=== PATIENT | male | born 1955 ===

== ENCOUNTER 2024-10-10 07:24 | Inpatient (IN) | payer OTHER, SELFPAY ==
[2024-10-10] VITALS (19 sets, daily range): BP systolic 126–166; BP diastolic 71–91; PULSE 72–124; RESP 13–19; TEMP 36.1–37.2; O2SAT 92–100; BMI 26.0; BMI 27.4
--- NOTE | ~2024-10-10 | CT_ITS ---
EXAMINATION: CT HEAD WITHOUT CONTRAST CLINICAL INFORMATION: mental status changes COMPARISON: None available. TECHNIQUE: Contiguous axial imaging was performed from the skull base to vertex without intravenous administration of contrast. This CT examination was performed using dose optimization techniques as appropriate, variously including the following: *Automated exposure control *Adjustment of mA and/or kV according to patient size (this includes techniques or standardized protocols for targeted exams where dose is matched to indication/reason for exam; i.e. extremities or head) *Use of iterative reconstruction technique DLP: 1681 mGy-cm FINDINGS: No acute intracranial hemorrhage, mass effect, midline shift, hydrocephalus or herniation. Grade 1 matter differentiation is normal. Multifocal old lacunar infarcts, basal ganglia and davidson radiata white matter. Mild multilevel patchy deep periventricular white matter hypodensities involving centrum semiovale and davidson radiata. Posterior cranial fossa contents demonstrated no acute intracranial hemorrhage or mass effect. Calcified plaques in the V4 segments and the cavernous supraclinoid segments both ICA. Small cavum septa pellucida, congenital variant. The bony calvarium is intact. No air-fluid levels in the included paranasal sinuses. Tympanic cavities and mastoid air cells are aerated. No gross hematoma or masses in the intraconal or the extraconal compartments of the orbits. CT/CT head/brain wo IV con IMPRESSION: No acute intracranial hemorrhage. Small vessel occlusive disease. Superimposed acute stroke/nonhemorrhagic ischemia cannot be excluded. Electronically signed by: Alex Williamson MD 10/10/2024 10:36 AM [facility]
--- NOTE | ~2024-10-10 | MR_ITS ---
CLINICAL HISTORY: mental status changes MR Brain without gadolinium Comparison: CT/MT/SR - CT HEAD/BRAIN WO IV CON - 10/10/24 09:54 EST Findings: 3 mm focus of restricted diffusion within the high right frontal lobe. No intracranial mass or hemorrhage. No midline shift. No hydrocephalus. Vascular flow voids are intact. There is mild white matter disease. The orbits are normal. The sinuses and mastoid air cells are clear. No focal bone lesion. IMPRESSION: 3 mm focus of acute infarction within the right frontal lobe. This document has been electronically signed by: Silvia Jackson MD on 10/14/2024 18:33:26
--- NOTE | ~2024-10-10 | CT_ITS ---
EXAMINATION: CT ABDOMEN PELVIS WITH IV CONTRAST HISTORY: upper abdominal pain IV contrast only COMPARISON: There are no prior studies for comparison. TECHNIQUE: CT scan of the abdomen and pelvis was performed following administration of 85 mL Omnipaque 350 using standard departmental protocol. Coronal and sagittal reformatted images were generated and reviewed. Oral contrast material was not administered at the request of the referring physician. This CT exam was performed with one or more of the following dose reduction techniques: automated exposure control, adjustment of the mA and/or kV according to patient size, use of iterative reconstruction technique. DLP: 946.96 mGy-cm FINDINGS: LOWER CHEST: The visualized lung bases are clear. There is no pleural effusion. CARDIOVASCULATURE: The heart is normal in size. There is no pericardial effusion. LIVER: The liver is normal in size and contour. No liver mass is identified. The hepatic and portal veins are patent. GALLBLADDER / BILE DUCTS: The gallbladder is distended and there is moderate pericholecystic inflammatory stranding, highly suggestive of acute cholecystitis. No calcified stones are identified.. There is no intra or extrahepatic biliary ductal dilatation. SPLEEN: The spleen is normal in size. No focal splenic lesion is identified. PANCREAS: The pancreas is unremarkable in appearance. ADRENAL GLANDS: Within normal limits. KIDNEYS/RETROPERITONEUM: There is a nonobstructing 3 mm calculus in an interpolar calyx of the right kidney. There is no hydronephrosis. There is a 1.6 cm cyst in the interpolar region of the right kidney. Smaller hypodense foci in both kidneys likely represent cysts but are too small to accurately characterize. LYMPH NODES: No abdominal or pelvic lymphadenopathy. VASCULATURE: The abdominal aorta demonstrates atherosclerotic calcification, but is normal in caliber. MESENTERY/PERITONEUM: No free fluid. No masses. There is no free intraperitoneal gas. STOMACH: There is a small hiatal hernia. The stomach is otherwise collapsed. SMALL BOWEL: The small bowel is normal in caliber. COLON: There is a moderate amount of stool throughout the colon. APPENDIX: Normal. URINARY BLADDER/PELVIC ORGANS: The urinary bladder is unremarkable. The patient is likely status post TURP. BONES / SOFT TISSUES: There is degenerative disc disease of the spine. CT/CT abdomen pelvis w IV con IMPRESSION: While no calcified gallstones are identified, findings are highly suggestive of acute cholecystitis. Ultrasound or HIDA scan may be helpful. Electronically signed by: Luis A Vera MD 10/10/2024 10:48 AM NELIDA
--- NOTE | ~2024-10-10 | XR_ITS ---
EXAMINATION: XR CHEST CLINICAL INFORMATION: chest pain COMPARISON: None available. TECHNIQUE: 2 views of the chest were obtained. FINDINGS: Pulmonary reticular pattern. Haziness in the right middle lobe. No pleural effusion or pneumothorax. Cardiomediastinal silhouette demonstrates calcified plaque thoracic aorta. Multilevel thoracic and upper lumbar spondylosis. Radiopaque foreign body in the left humeral head not fully depicted. XR/XR chest 2V IMPRESSION: Chronic interstitial lung disease with questionable airspace disease in the right middle lobe. Electronically signed by: Alex Williamson MD 10/10/2024 09:56 AM EST
--- NOTE | 2024-10-10 07:27 | ECG_ITS ---
Test Reason : chest pain Blood Pressure : */* mmHG Vent. Rate : 83 BPM Atrial Rate : 83 BPM P-R Int : 144 ms QRS Dur : 80 ms QT Int : 348 ms P-R-T Axes : 14 7 41 degrees QTcB Int : 408 ms Normal sinus rhythm Cannot rule out Inferior infarct , age undetermined Cannot rule out Anterior infarct , age undetermined Abnormal ECG No previous ECGs available Referred By: Generic ED Physician Electronically Signed By: MARCOS KINGSTON
[2024-10-10 08:04] LABS: Basophils Absolute Auto 0.1 X10*3/uL (0.0-0.2); Basophils Percent Auto 0.3 % (0-2); Hematocrit 41.9 % (42.0-52.0); Hemoglobin 14.3 g/dl (14.0-18.0); Imm Gran Abs Auto 0.24 X10*3/uL (0.00-0.03); Lymphocytes Percent Auto 8.3 % (20-40); MANUAL DIFF FLAG SCAN; Mean Corpuscular HGB Conc 34.1 g/dl (31.0-36.0); Mean Corpuscular Hemoglobin 32.7 pg (27.0-33.0); Mean Corpuscular Volume 95.9 fL (80.0-98.0); Mean Platelet Volume 11.1 fL (9.4-12.4); Monocytes Absolute Auto 2.9 X10*3/uL (0.1-1.2); Monocytes Percent Auto 11.7 % (2-11); Neutrophils Absolute Auto 19.3 x10*3/uL (2.0-8.3); Neutrophils Percent Auto 78.7 % (45-73); Platelet Count 216 X10*3/uL (160-400); Red Blood Count 4.37 X10*6/uL (4.60-5.80); Red Cell Distribution Width 12.6 % (11.0-16.0); SCAN SMEAR FLAG 1; White Blood Count 24.6 X10*3/uL (4.8-10.8)
[2024-10-10 08:18] LABS: Alanine Aminotransferase 19 U/L (0-40); Albumin Level 3.9 g/dL (3.5-5.0); Alkaline Phosphatase 83 U/L (39-117); Anion Gap 11 (12-20); Aspartate Amino Transferase 24 U/L (5-37); Bilirubin Direct 0.7 mg/dL (0.0-0.5); Bilirubin Total 1.4 mg/dL (0.0-1.0); Blood Urea Nitrogen 32 mg/dL (9-16); Calcium 10.8 mg/dL (8.4-10.2); Carbon Dioxide 26 mmol/L (22-29); Chloride 104 mmol/L (96-108); Creatinine Clr Calc Pharmacy 58.3; Estimated Glomerular Filt Rate 53; Glucose Random 94 mg/dL (60-115); Lipase 9 U/L (8-78); Potassium 4.3 mmol/L (3.3-5.1); Sodium 137 mmol/L (135-145); Total Protein 7.5 g/dL (6.5-8.0)
[2024-10-10 08:23] LABS: SLIDE REVIEW VERIFIED
--- NOTE | 2024-10-10 08:50 | ED_ITS ---
HPI - Abdominal Pain General Chief Complaint: Abdominal Pain Stated Complaint: chest pain Time Seen by Provider: 10/10/24 08:23 Source: patient Mode of arrival: ambulatory Limitations: no limitations History of Present Illness HPI narrative: This is 69 years old male presented to the emergency department with a chief complaint of nausea vomiting since Monday, also complaining of upper abdominal pain epigastric pain. He is from [place] he is working locally. Denies any fever chills MD elicited complaint: abdominal pain Pertinent past history: none Onset (ago): day(s) (2) Pain Consistency: constant Location: epigastric, LUQ and RUQ Severity: moderate Quality: cramping Radiation: none Migration to: no migration Exacerbating factors: nothing Related Data Home Medications ?Medication ?Instructions ?Recorded ?Confirmed cetirizine 10 mg tablet 10 mg PO DAILY 10/10/24 famotidine 20 mg tablet 20 mg PO DAILY 10/10/24 famotidine 20 mg tablet 20 mg PO DAILY 10/10/24 imipramine HCl 25 mg tablet 25 mg PO DAILY 10/10/24 lisinopril 20 mg tablet 20 mg PO DAILY blood pressure 10/10/24 omeprazole 40 mg capsule,delayed 40 mg PO DAILY 10/10/24 release Allergies Allergy/AdvReac Type Severity Reaction Status Date / Time No Known Allergies Allergy Verified 10/10/24 07:49 Review of Systems Constitutional: Reports fatigue and Denies fever(s) Gastrointestinal: Reports nausea and Reports vomiting Endocrine: Reports fatigue PMFSH Past Medical History Attestation statement: The following information was validated with the patient. Social History Social History Smoked in Last 30 Days: Yes Use of substances other than those prescribed or required for medical reasons: No Advance Directives: No Advance Directives Information Provided: Yes Physical Exam ED Vital Signs: Vital Signs - 24 hr 10/10/24 07:47 10/10/24 08:34 Temperature 97.7 F 99 F Pulse Rate 82 Respiratory Rate 16 Blood Pressure 136/79 Pulse Oximetry 97 Oxygen Delivery Method Room Air BMI result Body Mass Index 26.0 He looks well is not toxic-appearing Const General: cooperative, comfortable and no acute distress Orientation/consciousness: patient oriented x3 HENMT Head: Yes normal to inspection General nose exam: Normal external nose present Mouth: Normal oral and palatal mucosa present Neck Neck: Yes normal visual inspection Chest Chest palpation & inspection: normal inspection of the chest Resp Effort & Inspection: normal respiratory effort Cardio Jugular venous distension: no JVD Rate: regular rate GI Inspection: Yes normal to inspection Palpation (GI): Soft to palpation, nontender and no guarding Skin General skin exam: no rashes or lesions noted and elasticity normal Neuro General: patient oriented x3 Course Reevaluation(s) Reevaluation #1: Clinical picture is consistent with acute cholecystitis case was discussed with surgery Dr. Bhardwaj patient will be admitted for cholecystectomy Time: 11:50 Medical Decision Making Medical Decision Making [facility] Narrative: Patient here with nausea and vomiting upper abdominal pain we will obtain labs Differential Diagnosis Differential Diagnoses: The differential diagnosis associated with the presentation includes Viral syndrome/peptic ulcer disease/cholecystitis Admission/Observation Consideration of admission/observation: Escalation of care including admission/observation considered Consult Healthcare Provider Management of the patient was discussed with: Salvage Clerk dr Bhardwaj Lab Data MDM Lab Attestation statement: I reviewed the patient's lab results. 10/10/24 07:57 10/10/24 07:57 Labs: Lab Results 10/10/24 10/10/24 Range/Units 07:57 09:20 WBC 24.6 H (4.8-10.8) X10*3/uL RBC 4.37 L (4.60-5.80) X10*6/uL Hgb 14.3 (14.0-18.0) g/dl Hct 41.9 L (42.0-52.0) % MCV 95.9 (80.0-98.0) fL MCH 32.7 (27.0-33.0) pg MCHC 34.1 (31.0-36.0) g/dl RDW 12.6 (11.0-16.0) % Plt Count 216 (160-400) X10*3/uL MPV 11.1 (9.4-12.4) fL Immature Gran % (Auto) 1.0 H (0.0-0.4) % Neut % (Auto) 78.7 H (45-73) % Lymph % (Auto) 8.3 L (20-40) % [place] % (Auto) 11.7 H (2-11) % Eos % (Auto) 0.0 (0-4) % Baso % (Auto) 0.3 (0-2) % Lymph # (Auto) 2.0 (1.2-4.9) X10*3/uL [place] # (Auto) 2.9 H (0.1-1.2) X10*3/uL Eos # (Auto) 0.0 (0.0-0.4) X10*3/uL Baso # (Auto) 0.1 (0.0-0.2) X10*3/uL Abs Immat Gran (auto) 0.24 H (0.00-0.03) X10*3/uL Absolute Neuts (auto) 19.3 H (2.0-8.3) x10*3/uL Absolute Nucleated RBC 0.000 (0.0-0.012) X10*3/uL Nucleated RBC % (auto) 0.0 (0.0-0.2) /100WBC Smear Tech's Comments VERIFIED Sodium 137 (135-145) mmol/L Potassium 4.3 (3.3-5.1) mmol/L Chloride 104 (96-108) mmol/L Carbon Dioxide 26 (22-29) mmol/L Anion Gap 11 L (12-20) BUN 32 H (9-16) mg/dL Creatinine 1.33 (0.5-1.4) mg/dL Estim Creat Clear Calc 58.3 Estimated GFR 53 Random Glucose 94 (60-115) mg/dL Lactic Acid 1.8 (0.5-2.0) mmol/L Calcium 10.8 H (8.4-10.2) mg/dL Total Bilirubin 1.4 H (0.0-1.0) mg/dL Direct Bilirubin 0.7 H (0.0-0.5) mg/dL AST 24 (5-37) U/L ALT 19 (0-40) U/L Alkaline Phosphatase 83 (39-117) U/L Troponin I High Sens 10.2 (<3.5-35.0) ng/L Total Protein 7.5 (6.5-8.0) g/dL Albumin 3.9 (3.5-5.0) g/dL Lipase 9 (8-78) U/L Independent Interpretation I performed an independent interpretation of an: EKG and CT Scan Interpretation: Normal sinus rhythm rate [address]-T changes no ischemia EKG was reviewed interpreted by me Radiology Impression Discussion of test interpretation with radiology: I have reviewed the radiologist's reading. Radiologist Impression: MESENTERY/PERITONEUM: No free fluid. No masses. There is no free intraperitoneal gas. STOMACH: There is a small hiatal hernia. The stomach is otherwise collapsed. SMALL BOWEL: The small bowel is normal in caliber. COLON: There is a moderate amount of stool throughout the colon. APPENDIX: Normal. URINARY BLADDER/PELVIC ORGANS: The urinary bladder is unremarkable. The patient is likely status post TURP. BONES / SOFT TISSUES: There is degenerative disc disease of the spine. CT/CT abdomen pelvis w IV con IMPRESSION: While no calcified gallstones are identified, findings are highly suggestive of acute cholecystitis. Ultrasound or HIDA scan may be helpful. Prescription Management I considered prescription management with: Pain Medication Chronic Conditions Patient?s care impacted by: Hypertension Medications Administered Generic Name Dose Route Start Last Admin Trade Name Freq PRN Reason Stop Dose Admin Metronidazole 500 mg in 100 mls @ 100 mls/hr 10/10/24 11:01 10/10/24 11:39 Flagyl IV 10/10/24 12:00 100 mls/hr ONCE ONE Administration Discontinued Medications Generic Name Dose Route Start Last Admin Trade Name Freq PRN Reason Stop Dose Admin Ceftriaxone Sodium 1 gm 10/10/24 10:10 10/10/24 10:26 Ceftriaxone Sodium 1 Gm Vial IVPUSH 10/10/24 10:11 1 gm ONCE ONE Administration Sodium Chloride 1,000 mls @ 999 mls/hr 10/10/24 09:00 10/10/24 09:36 Ns IVCONT 10/10/24 10:00 999 mls/hr .Q1H1M MAURO Administration Iohexol 85 ml 10/10/24 10:28 10/10/24 10:28 Iohexol 350 Mg/Ml 100 Ml Infus..Btl IV 10/10/24 10:29 85 ml ONCE ONE Administration Discharge Plan Discharge Clinical Impression: Cholecystitis Patient Disposition: Admitted As Inpatient Print Language: Maori
[2024-10-10 09:29] LABS: Troponin-I High Sensitivity 10.2 ng/L (<3.5-35.0)
[2024-10-10] MEDS: 0.9 % Sodium Chloride 1,000 ML 999 ML IVCONT (09:36)
[2024-10-10 09:43] LABS: Lactic Acid 1.8 mmol/L (0.5-2.0)
[2024-10-10] MEDS: cefTRIAXone sodium 1 GM VIAL IVPUSH (10:26)
[2024-10-10] MEDS: iohexoL 350 MG/ML 100 ML INFUS..BTL 85 ML IV (10:28)
[2024-10-10] MEDS: metroNIDAZOLE/NS 500 MG/100 ML PIGGYBACK 100 MG IV (11:39)
--- NOTE | 2024-10-10 12:06 | PM.HPGS ---
History of Present Illness History of Present Illness Date of Service: 10/10/24 Chief complaint: chest pain Narrative: Mal Mccurdy is a 69 year old male who presents with roughly 3 days of progressively worsening upper abdominal/epigastric pain. Because of progression of symptoms, he presents to the emergency department further evaluation. Workup in the emergency department demonstrated findings on exam and on CT scan consistent with acute cholecystitis. Patient had 1 similar episode in the past but not of this severity. He otherwise tolerating a diet. He has regular bowel habits. He has never been jaundiced before. Chart was reviewed and patient evaluated. Patient was a significant smoking history of 1-2 packs per day for over 40+ years. Patient had laparoscopic prostate surgery in the past PMFSH Social History Social History Smoked in Last 30 Days: Yes Use of substances other than those prescribed or required for medical reasons: No Advance Directives: No Advance Directives Information Provided: Yes Meds Allergies Allergy/AdvReac Type Severity Reaction Status Date / Time No Known Allergies Allergy Verified 10/10/24 07:49 Active Medications: Current Medications Sodium Chloride (Ns) 1,000 mls @ 150 mls/hr IVCONT .Q6H40M MAURO Home Medications ?Medication ?Instructions ?Recorded ?Confirmed ?Last Taken ?Type cetirizine 10 mg tablet 10 mg PO DAILY 10/10/24 Unknown History famotidine 20 mg tablet 20 mg PO DAILY 10/10/24 Unknown History imipramine HCl 25 mg tablet 25 mg PO DAILY 10/10/24 Unknown History lisinopril 20 mg tablet 20 mg PO DAILY blood pressure 10/10/24 Unknown History omeprazole 40 mg capsule,delayed 40 mg PO DAILY 10/10/24 Unknown History release Physical Exam Vital Signs: Vital Signs: Last Vital Signs Temp 99 F 10/10/24 08:34 Pulse 82 10/10/24 07:47 Resp 16 10/10/24 07:47 BP 136/79 10/10/24 07:47 Pulse Ox 97 10/10/24 07:47 O2 Del Method Room Air 10/10/24 07:47 BMI result Body Mass Index 26.0 Chest: Other: Chest breath sounds bilaterally, HS 1 in 2 GI: Other: Mildly corpulent abdomen. Marked right upper quadrant tenderness and positive Luna's sign. Results Results Labs: Short CBC 10/10/24 Range/Units 07:57 WBC 24.6 H (4.8-10.8) X10*3/uL Hgb 14.3 (14.0-18.0) g/dl Hct 41.9 L (42.0-52.0) % Plt Count 216 (160-400) X10*3/uL BMP 10/10/24 07:57 Sodium 137 Potassium 4.3 Chloride 104 Carbon Dioxide 26 BUN 32 H Creatinine 1.33 Calcium 10.8 H Liver Function 10/10/24 Range/Units 07:57 Total Bilirubin 1.4 H (0.0-1.0) mg/dL Direct Bilirubin 0.7 H (0.0-0.5) mg/dL AST 24 (5-37) U/L ALT 19 (0-40) U/L Alkaline Phosphatase 83 (39-117) U/L Albumin 3.9 (3.5-5.0) g/dL Assessment and Plan (1) Cholecystitis: Status: Acute Plan I discussed the summation of the clinical findings including leukocyte count of 24,000, CT scan demonstrating a markedly edematous gallbladder, and significant right upper quadrant tenderness on exam all consistent with acute cholecystitis. I discussed therapeutic options with the patient which essentially are conservative therapy which I would not recommend or laparoscopic possible open cholecystectomy. He wishes to proceed with the surgery. Also spoke with his by phone. Risks, benefits, and alternatives of laparoscopic possible open cholecystectomy reviewed and included but not limited to bleeding, infection,, numbness, pain, scarring, bowel or bile duct injury or leak and the patient understands and consent signed. All questions answered. Patient will be made an add on case for today. Quality Stroke Does the patient have a stroke diagnosis?: No VTE Prior VTE?: No VTE Risk Level:: Surgical - low VTE Device Contraindication: N/A - Device Ordered VTE Drug Contraindication: Treatment Not Indicated Procedures Date of Service Date of Service: 10/10/24
--- NOTE | 2024-10-10 12:19 | PHA.MEDREC ---
Addendum entered by Melony Pastrana [facility] 10/10/24 12:40: reviewed Original Note: Pharmacy Consult ? Medication Reconciliation Pharmacy has completed the medication reconciliation. Spoke with patient and he confirmed his medications. I asked if he was taking the Famotidine for acid reflux and he stated he is taking Omeprazole 40mg tabs but was not familiar with the Famotidine. He also confirmed he takes Vitamins OTC and was able to confirm he is taking a Vitamin C 500mg tablet and confirmed he takes 2 tablets daily. He did not remember the others and stated his should be able to confirm those if we called her. I called and left the patients (Iona) a voicemail to call back and confirm those. Will update med rec if she calls back with the OTC medications.
[2024-10-10] MEDS: 0.9 % Sodium Chloride 1,000 ML 150 ML IVCONT (13:06)
--- NOTE | 2024-10-10 13:46 | HO.ANESPROP2 ---
HPI - Anesthesia Eval Consult details Narrative: 69 yo male patient for Laparoscopic Cholecystectomy ? open PMFSH Active Problems Active Problems: All Active Problems Acute Cholecystitis Urinary incontinence post prostate surgery. On imipramine for this Smoker- Last cigarette this morning Past Medical History Medical History Acid reflux Prostate CA HTN (hypertension) Family History Family history of problems with anesthesia: No Surgical History Surgical History History of prostate surgery History of rotator cuff surgery History of back surgery History of Problems with Anesthesia: No Social History Social History Patient Tobacco Use Status: Current everyday Tobacco user Tobacco use type: Cigarette Cigarette Packs Per Day: 2 Cigarettes Per Day: 40.0 Smoked in Last 30 Days: Yes Second Hand Smoke Exposure: No Use of substances other than those prescribed or required for medical reasons: No Have you been hit, kicked, punched, or otherwise hurt by someone within the past year? If so, by whom?: No Are you DNR?: No Advance Directives: No Advance Directives Information Provided: Yes Advance Directives on File: No Recently lost weight without trying: No Nutrition Risks: No Nutritional Risk Poor oral hygiene: No Meds Allergies Allergy/AdvReac Type Severity Reaction Status Date / Time No Known Allergies Allergy Verified 10/10/24 07:49 Active Medications: Current Medications Acetaminophen (Acetaminophen 325 Mg Tablet) 650 mg PO Q6H PRN PRN Reason: Pain, Mild 1-3,fever,headache Calcium Carbonate (Calcium Carbonate 750 Mg Tab.Chew) 750 mg PO Q4H PRN PRN Reason: Heartburn Sodium Chloride (Ns) 1,000 mls @ 150 mls/hr IVCONT .Q6H40M MAURO Last Admin: 10/10/24 13:06 Dose: 150 mls/hr Lactated Ringer's (Lr) 1,000 mls @ 80 mls/hr IVCONT .[id number] [facility] Magnesium Hydroxide (Milk Of Magnesia 30 Ml Oral.Susp) 30 ml PO DAILY PRN PRN Reason: Constipation Melatonin (Melatonin 3 Mg Tablet) 6 mg PO BEDTIME PRN PRN Reason: Insomnia Morphine Sulfate (Morphine Sulfate 4 Mg/Ml Cartridge) 4 mg IVPUSH Q4H PRN; Protocol PRN Reason: Pain, Severe (Pain Scale 7-10) Sodium Chloride (0.9 % Sodium Chloride Flush 3 Ml Syringe) 3 ml IVFLUSH QSHIFT [facility] Home Medications ?Medication ?Instructions ?Recorded ?Confirmed ?Last Taken ?Type ascorbic acid (vitamin C) 500 mg 1,000 mg PO DAILY 10/10/24 10/10/24 10/09/24 History tablet (Vitamin C) imipramine HCl 25 mg tablet 25 mg PO DAILY 10/10/24 10/10/24 10/09/24 History lisinopril 20 mg tablet 20 mg PO DAILY blood pressure 10/10/24 10/10/24 10/09/24 History omeprazole 40 mg capsule,delayed 40 mg PO DAILY 10/10/24 10/10/24 10/09/24 History release Exam Height,Weight and Vital Signs: Height 6 ft Weight 87 kg Last Vital Signs Temp 98 F 10/10/24 13:07 Pulse 72 10/10/24 13:07 Resp 19 10/10/24 13:07 BP 139/80 10/10/24 13:07 Pulse Ox 98 10/10/24 13:07 O2 Del Method Room Air 10/10/24 12:29 Pertinent Lab Results Pertinent Lab Results: Laboratory Tests 10/10/24 10/10/24 07:57 09:20 WBC 24.6 H RBC 4.37 L Hgb 14.3 Hct 41.9 L MCV 95.9 MCH 32.7 MCHC 34.1 RDW 12.6 Plt Count 216 MPV 11.1 Immature Gran % (Auto) 1.0 H Neut % (Auto) 78.7 H Lymph % (Auto) 8.3 L [place] % (Auto) 11.7 H Eos % (Auto) 0.0 Baso % (Auto) 0.3 Lymph # (Auto) 2.0 [place] # (Auto) 2.9 H Eos # (Auto) 0.0 Baso # (Auto) 0.1 Abs Immat Gran (auto) 0.24 H Absolute Neuts (auto) 19.3 H Absolute Nucleated RBC 0.000 Nucleated RBC % (auto) 0.0 Smear Tech's Comments VERIFIED Sodium 137 Potassium 4.3 Chloride 104 Carbon Dioxide 26 Anion Gap 11 L BUN 32 H Creatinine 1.33 Estim Creat Clear Calc 58.3 Estimated GFR 53 Random Glucose 94 Lactic Acid 1.8 Calcium 10.8 H Total Bilirubin 1.4 H Direct Bilirubin 0.7 H AST 24 ALT 19 Alkaline Phosphatase 83 Troponin I High Sens 10.2 Total Protein 7.5 Albumin 3.9 Lipase 9 Airway Mallampati Class: II TM Dist: >3cm Neck ROM: Full Loose/Missing/Broken Teeth: Yes (Loose tooth bottom front. Several broken teeth- brittle, broken at gum level) Heart: RRR Lungs: Bilateral wheezes Assessment and Plan Assessment Anesthesia Assessment: Anesthesia Plan Discussed and Chart Reviewed Final Anesthetic Review Family History of Problems with Anesthesia: No History of Problems with Anesthesia: No NPO: Yes ASA Class: III and Emergency Final Preanesthetic Review: No Changes in Pt Med Stat, Meds/Allgs Chart Reviewed, Consent Obtained/Reviewed and Anes Risks/Benef Reviewed Patient Risk: Intermediate Procedure Risk: Intermediate Assessment/Block/Sedation in SS: Assess/Block/Sedation-SS Anesthetic Plan Anesthetic Plan: GA Disposition: Standard PACU
[2024-10-10] MEDS: Lactated Ringers 1,000 ML 80 ML IVCONT ×2 (13:49→17:46)
[2024-10-10] MEDS: Albuterol Sulfate (0.083%) 2.5 MG/3 ML VIAL.NEB INHALE (13:56)
--- NOTE | 2024-10-10 15:12 | P.OP_ITS ---
Operative Note Operative Note Date of Service: 10/10/24 Narrative: Preoperative diagnosis: [] Acute phlegmonous cholecystitis Postop diagnosis: [] Acute gangrenous cholecystitis Procedure [] laparoscopic cholecystectomy Surgeon: [] Benton Sales Account Coordinator: [] Raciel Type of Anesthesia: [] General Indication for surgery: [] Gangrenous phlegmonous pus filled gallbladder. Markedly turgid. Omental adhesions to the gallbladder. Gallbladder was falling apart with retraction. Markedly intrahepatic gallbladder Findings: [] Patient brought to the operating room, placed on operative table supine position, after an adequate level general anesthesia was induced, the patient's abdomen was prepped and draped in usual sterile fashion using a supraumbilical curvilinear incision, Rodas technique was used to insufflate abdominal cavity to 15 mm of CO2. Upper midline and right subcostal ports were placed under direct laparoscopic view, and findings were as noted above. Omental adhesions swept off the gallbladder were the turgid gallbladder was initially decompressed with an aspirating device of the gallbladder could be grasped. Gallbladder was retracted superiorly and laterally and was literally partially falling apart because of the gangrenous wall. Cystic duct and cystic artery were each identified, circumferentially skeletonized, traced directly into the gallbladder, and critical view obtained. Each was clipped proximally x2, distally x1, and transected. Gallbladder which was very intrahepatic was then cauterized from the gallbladder fossa using Bovie. Specimen placed in an Endo-Catch bag, a retrieved through the umbilical port. Abdominal cavity was very copiously irrigated and secured hemostasis. A Bayron-Figueroa drain was left in the gallbladder fossa and exited through the right lateral port. This was secured to the skin using 2-0 nylon. Remaining ports removed under direct laparoscopic view. Wounds were closed in the following manner; umbilical wound has fascia reapproximated using interrupted 0 Vicryl sutures. Skin wounds were closed using subcuticular 4-0 Vicryl sutures followed by Steri-Strips and sterile dressings. Wounds were infiltrated with 0.5% Marcaine at completion. Sponge, needle, and instrument counts reported correct. Patient tolerated the procedure well and emerged from anesthesia stable condition. EBL minimal
[2024-10-10] MEDS: Morphine Sulfate 4 MG/ML CARTRIDGE IVPUSH (23:14)
[2024-10-11] VITALS (7 sets, daily range): BP systolic 120–149; BP diastolic 69–82; PULSE 77–88; RESP 18; TEMP 36.3–37.1; O2SAT 93–94
[2024-10-11 05:22] LABS: Anion Gap 14 (12-20); Carbon Dioxide 21 mmol/L (22-29); Chloride 109 mmol/L (96-108); Sodium 140 mmol/L (135-145)
[2024-10-11] MEDS: Lactated Ringers 1,000 ML 80 ML IVCONT (05:35)
[2024-10-11] MEDS: Omeprazole 40 MG CAPSULE.DR PO (06:05)
--- NOTE | 2024-10-11 06:32 | P.PNGS_ITS ---
Subjective Subjective Date of Service: 10/11/24 <[facility] - Last Filed: 10/11/24 07:06> 10/11/24 <Maryjane Schrader PA-C - Last Filed: 10/11/24 08:33> 10/11/24 <Jaylen Bhardwaj MD - Last Filed: 10/11/24 10:04> Interval history: POD 1 s/p laparoscopic cholecystectomy Patient states he is feeling okay. Only has pain when he coughs. No difficulty urinating, has been OOB to bathroom. Has not had a bowel movement or passed flatulence . Denies chest pain, shortness of breath, nausea or vomiting. Denies fevers or chills.Tolerating liquids. Endorses chronic cough <[facility] Last Filed: 10/11/24 07:06> Physical Exam 2 Vital Signs: Vital Signs: Last Vital Signs Temp 98.3 F 10/11/24 03:44 Pulse 82 10/11/24 03:44 Resp 18 10/11/24 03:44 BP 120/69 10/11/24 03:44 Pulse Ox 93 10/11/24 03:44 O2 Del Method Room Air 10/11/24 03:44 O2 Flow Rate 3 10/10/24 16:35 FiO2 30 10/10/24 16:35 BMI result Body Mass Index 27.4 <[facility] Last Filed: 10/11/24 07:06> Const: Other: Laying in bed, Awake and in no acute distress <[facility] Last Filed: 10/11/24 07:06> Orientation/consciousness: patient oriented x3 <Maryjane Schrader PA-C - Last Filed: 10/11/24 08:33> HEENT: Other: No scleral icterus noted <[facility] Last Filed: 10/11/24 07:06> Resp: Other: Slight expiratory wheezes heard in upper lobes. No increased work of breathing <[facility] Last Filed: 10/11/24 07:06> Effort & Inspection: normal respiratory effort and no use of accessory muscles <Maryjane Schrader PA-C - Last Filed: 10/11/24 08:33> Cardio: Other: Regular rate and rhythm <Mrobkx-DA-Oowzbri-Ah Esa - Last Filed: 10/11/24 07:06> GI: Other: Abdomen is soft and non distended. Tenderness to incision sites. Dressing intact, OP drain in place. <Yhdjus-VD-Zxrpsmi-Ah Esa - Last Filed: 10/11/24 07:06> Other: Abdomen is soft and non distended. Tenderness to incision sites. Dressing intact, DINESH drain in placewith scant serosanguineous output. <Maryjane Schrader PA-C - Last Filed: 10/11/24 08:33> Skin: Other: No jaundice, No rashes or lesions noted. <Pzrisv-AC-Iaylqhy-Ah Esa - Last Filed: 10/11/24 07:06> Neuro: General: patient oriented x3 and moves all extremities <Maryjane Schrader PA-C - Last Filed: 10/11/24 08:33> Extrem: Other: moving all extremities normally, no lower extremity swelling noted. <Zzkgjf-BI-Ozputpq-Ah Esa - Last Filed: 10/11/24 07:06> Psych: Other: Alert or orientated x3 <[facility] - Last Filed: 10/11/24 07:06> Objective Data Active Medications Acetaminophen (Acetaminophen 325 Mg Tablet) 650 mg PO Q6H PRN PRN Reason: Pain, Mild 1-3,fever,headache Ascorbic Acid (Ascorbic Acid 500 Mg Tablet) 1,000 mg PO DAILY [facility] Calcium Carbonate (Calcium Carbonate 750 Mg Tab.Chew) 750 mg PO Q4H PRN PRN Reason: Heartburn Sodium Chloride (Ns) 1,000 mls @ 150 mls/hr IVCONT .[id number] [facility] Last Admin: 10/11/24 02:22 Dose: Not Given Documented By: LIBBY Non-Admin Reason: tis fluid not in use Lactated Ringer's (Lr) 1,000 mls @ 80 mls/hr IVCONT .[id number] [facility] Last Admin: 10/11/24 05:35 Dose: 80 mls/hr Documented By: LIBBY Imipramine HCl (Imipramine Hcl 50 Mg Tablet) 25 mg PO DAILY [facility] Lisinopril (Lisinopril 20 Mg Tablet) 20 mg PO DAILY [facility]; Protocol Magnesium Hydroxide (Milk Of Magnesia 30 Ml Oral.Susp) 30 ml PO DAILY PRN PRN Reason: Constipation Melatonin (Melatonin 3 Mg Tablet) 6 mg PO BEDTIME PRN PRN Reason: Insomnia Morphine Sulfate (Morphine Sulfate 4 Mg/Ml Cartridge) 4 mg IVPUSH Q4H PRN; Protocol PRN Reason: Pain, Severe (Pain Scale 7-10) Last Admin: 10/10/24 23:14 Dose: 4 mg Documented By: LIBBY Nicotine (Nicotine 21 Mg Patch.Td24) 21 mg TRANSDERMA DAILY [facility] Omeprazole (Omeprazole 40 Mg Capsule.Dr) 40 mg PO DAILY@0630 [facility] Last Admin: 10/11/24 06:05 Dose: 40 mg Documented By: LIBBY Ondansetron HCl (Ondansetron Hcl 4 Mg/2 Ml Vial) 4 mg IVPUSH Q6H PRN PRN Reason: Nausea and Vomiting Oxycodone HCl (Oxycodone Hcl Immed Release 5 Mg Tablet) 5 mg PO Q4H PRN PRN Reason: Pain, Moderate(Pain Scale 4-6) Sodium Chloride (0.9 % Sodium Chloride Flush 3 Ml Syringe) 3 ml IVFLUSH QSHIFT [facility] Last Admin: 10/10/24 23:49 Dose: Not Given Documented By: LIBBY Non-Admin Reason: IV Running <[facility] - Last Filed: 10/11/24 07:06> Labs CBC & Chem 7: 10/10/24 07:57 10/11/24 05:06 <[facility] - Last Filed: 10/11/24 07:06> Labs: Laboratory Results - last 24 hr 10/10/24 10/10/24 10/11/24 07:57 09:20 05:06 MCV 95.9 MCH 32.7 MCHC 34.1 RDW 12.6 Plt Count 216 MPV 11.1 Immature Gran % (Auto) 1.0 H Neut % (Auto) 78.7 H Lymph % (Auto) 8.3 L [place] % (Auto) 11.7 H Eos % (Auto) 0.0 Baso % (Auto) 0.3 Lymph # (Auto) 2.0 [place] # (Auto) 2.9 H Eos # (Auto) 0.0 Baso # (Auto) 0.1 Abs Immat Gran (auto) 0.24 H Absolute Neuts (auto) 19.3 H Absolute Nucleated RBC 0.000 Nucleated RBC % (auto) 0.0 Smear Tech's Comments VERIFIED Anion Gap 11 L 14 Estim Creat Clear Calc 58.3 Estimated GFR 53 Random Glucose 94 Lactic Acid 1.8 Calcium 10.8 H Total Bilirubin 1.4 H Direct Bilirubin 0.7 H AST 24 ALT 19 Alkaline Phosphatase 83 Troponin I High Sens 10.2 Total Protein 7.5 Albumin 3.9 Lipase 9 <[facility] - Last Filed: 10/11/24 07:06> Procedures Date of Service Date of Service: 10/11/24 <[facility] - Last Filed: 10/11/24 07:06> 10/11/24 <Maryjane Schrader PA-C - Last Filed: 10/11/24 08:33> 10/11/24 <Jaylen Bhardwaj MD - Last Filed: 10/11/24 10:04> Progress Note: A&P Assessment and plan (1) Cholecystitis: Status: Acute <[facility] - Last Filed: 10/11/24 07:06> (2) S/P laparoscopic cholecystectomy: Status: Acute <[facility] - Last Filed: 10/11/24 07:06> Assessment and Plan: Pain only upon coughing urinating normally Abdominal exam benign, with appropriate tenderness of incision site. OOB to bathroom no bowel movement or flatulence. Patient with 3 day history of abdominal pain nausea and vomiting, diagnosed with acute cholecytitis. POD 1 s/p laparoscopic cholecystectomy. Excuabtion proceeding surgery complicated by respiratory failure. Patient O2 stat wnl on RA. Regular diet. Continue pain regimen, continue bowel regimen, will add additional stool softener if needed. Increase activity if tolerated, incentive spirometer. <[facility] - Last Filed: 10/11/24 07:06> Patient with 3 day history of abdominal pain nausea and vomiting, diagnosed with acute cholecytitis. POD 1 s/p laparoscopic cholecystectomy. Excuabtion proceeding surgery complicated by respiratory failure. Patient O2 stat wnl on RA. Regular diet. Continue pain regimen, continue bowel regimen, will add additional stool softener if needed. Increase activity if tolerated, incentive spirometer. Seen independently from LONNY Leiva. POD #1 s/p lap meir found to have acute gangrenous cholecystitis. Overall patient doing well post op. VSS. Stable from respiratory standpoint. Abd exam benign with clean dressings, DINESH drain scant serosanguineous. Increase activity, educated on incentive spirometer and use 10x/hr. Diet as tolerated. Dc IVF. Possibly home later today or tomorrow. < Maryjane Schrader PA-C - Last Filed: 10/11/24 08:33> Patient with 3 day history of abdominal pain nausea and vomiting, diagnosed with acute cholecytitis. POD 1 s/p laparoscopic cholecystectomy. Excuabtion proceeding surgery complicated by respiratory failure. Patient O2 stat wnl on RA. Regular diet. Continue pain regimen, continue bowel regimen, will add additional stool softener if needed. Increase activity if tolerated, incentive spirometer. Seen independently from LONNY Leiva. POD #1 s/p lap meir found to have acute gangrenous cholecystitis. Overall patient doing well post op. VSS. Stable from respiratory standpoint. Abd exam benign with clean dressings, DINESH drain scant serosanguineous. Increase activity, educated on incentive spirometer and use 10x/hr. Diet as tolerated. Dc IVF. Possibly home later today or tomorrow. As noted above. DC DINESH drain. <Jaylen Bhardwaj MD - Last Filed: 10/11/24 10:04> Time Spent With Patient Time: Total time managing care of this patient today ____ minutes. <[facility] - Last Filed: 10/11/24 07:06> Quality Stroke Does the patient have a stroke diagnosis?: No <[facility] - Last Filed: 10/11/24 07:06> VTE Prior VTE?: No <Pwgtrm-WN-Jlwmbsc-Ah [facility] - Last Filed: 10/11/24 07:06> VTE Risk Level:: Surgical - moderate <[facility]cmdks[facility]FF[facility]Ocxbpil- [facility] - Last Filed: 10/11/24 07:06> VTE Device Contraindication: N/A - Device Ordered <[facility] - Last Filed: 10/11/24 07:06> VTE Drug Contraindication: Treatment Not Indicated <[facility] - Last Filed: 10/11/24 07:06>
[2024-10-11] MEDS: Ascorbic Acid 500 MG TABLET 1000 MG PO (08:07)
[2024-10-11] MEDS: lisinopriL 20 MG TABLET PO (08:08)
[2024-10-11] MEDS: Imipramine HCl 50 MG TABLET 25 MG PO (08:08)
[2024-10-11] MEDS: oxyCODONE HCl Immed Release 5 MG TABLET PO ×3 (08:08→20:11)
[2024-10-11] MEDS: Nicotine 21 MG PATCH.TD24 TRANSDERMA (08:09)
[2024-10-11] MEDS: 0.9 % Sodium Chloride Flush 3 ML SYRINGE IVFLUSH ×2 (08:09→15:37)
--- NOTE | 2024-10-11 10:42 | HO.POSTANES ---
Post Anesthesia Evaluation Post Anesthesia Evaluation Date of Service: 10/11/24 Vital Signs: Vital Signs Temp Pulse Resp BP Pulse Ox O2 Del Method 10/11/24 08:02 98.8 F 78 18 146/77 H 93 Room Air 10/11/24 03:44 98.3 F 82 18 120/69 93 Room Air 10/10/24 23:45 18 Anesthesia: General Endotracheal-GETA Mental Status: Awake Pain Control: Satisfactory Nausea/Vomiting: None Hydration: Adequate Anesthesia-Related Issues: No Anes. Related Issues
[2024-10-11] MEDS: polyethylene glycoL 3350 17 GM POWD.PACK PO (11:07)
[2024-10-11] MEDS: Docusate Sodium 100 MG CAPSULE PO ×2 (11:07→20:11)
[2024-10-11 11:55] LABS: Basophils Absolute Auto 0.1 X10*3/uL (0.0-0.2); Basophils Percent Auto 0.3 % (0-2); Hematocrit 38.2 % (42.0-52.0); Hemoglobin 12.8 g/dl (14.0-18.0); Imm Gran Abs Auto 0.13 X10*3/uL (0.00-0.03); Imm Gran Pct Auto 0.8 % (0.0-0.4); Lymphocytes Percent Auto 12.4 % (20-40); MANUAL DIFF FLAG SCAN; Mean Corpuscular HGB Conc 33.5 g/dl (31.0-36.0); Mean Corpuscular Hemoglobin 32.2 pg (27.0-33.0); Mean Corpuscular Volume 96.2 fL (80.0-98.0); Mean Platelet Volume 11.1 fL (9.4-12.4); Monocytes Absolute Auto 2.1 X10*3/uL (0.1-1.2); Monocytes Percent Auto 13.2 % (2-11); Neutrophils Absolute Auto 11.7 x10*3/uL (2.0-8.3); Neutrophils Percent Auto 73.3 % (45-73); Platelet Count 200 X10*3/uL (160-400); Red Blood Count 3.97 X10*6/uL (4.60-5.80); Red Cell Distribution Width 12.7 % (11.0-16.0); SCAN SMEAR FLAG 1; White Blood Count 15.9 X10*3/uL (4.8-10.8)
[2024-10-11 12:10] LABS: Alanine Aminotransferase 60 U/L (0-40); Albumin Level 3.2 g/dL (3.5-5.0); Alkaline Phosphatase 99 U/L (39-117); Aspartate Amino Transferase 78 U/L (5-37); Bilirubin Direct 0.8 mg/dL (0.0-0.5); Bilirubin Total 1.5 mg/dL (0.0-1.0); Total Protein 6.5 g/dL (6.5-8.0)
[2024-10-11 12:29] LABS: SLIDE REVIEW VERIFIED
--- NOTE | 2024-10-11 12:39 | MHC.CM.PN ---
[place] AND IS [place] ON WORK BUSINESS, STAYING AT [facility] IN [place]. PT IS FUNCTIONALLY INDEPENDENT. +HCP [place]CP [place] AND PT DOES NOT KNOW NAME OF PROVIDER. DP: HOME, RETURN TO [facility]. PT MAY NEED ASSIST WITH RIDE TO [employer]OTEL. CM WILL CONTINUE TO FOLLOW FOR ANY CHANGE TO PLAN.
[2024-10-12] MEDS: oxyCODONE HCl Immed Release 5 MG TABLET PO ×2 (03:17→20:30)
[2024-10-12 03:50] VITALS: BP 142/87; PULSE 98; RESP 18; TEMP 36.3; O2SAT 92
[2024-10-12] MEDS: Omeprazole 40 MG CAPSULE.DR PO (06:02)
[2024-10-12 07:51] VITALS: BP 153/82; PULSE 76; RESP 16; TEMP 36.9; O2SAT 95
[2024-10-12 07:57] VITALS: O2SAT 95
--- NOTE | 2024-10-12 08:30 | PM.PNGS ---
Subjective Subjective Date of Service: 10/12/24 Interval history: Pod 2 status post laparoscopic cholecystectomy for gangrenous cholecystitis. He continues to have some incisional soreness but was able to tolerate his diet without nausea or vomiting. Physical Exam Vital Signs: Vital Signs: Last Vital Signs Temp 98.5 F 10/12/24 07:51 Pulse 76 10/12/24 07:51 Resp 16 10/12/24 07:51 BP 153/82 H 10/12/24 07:51 Pulse Ox 95 10/12/24 07:57 O2 Del Method Room Air 10/12/24 07:57 O2 Flow Rate 3 10/10/24 16:35 FiO2 30 10/10/24 16:35 BMI result Body Mass Index 27.4 Const: General: no acute distress Nutritional Appearance: well nourished Orientation/consciousness: patient oriented x3 Resp: Effort & Inspection: normal respiratory effort GI: Other: Trocar incisions are clean and intact without redness or discharge. Neuro: General: patient oriented x3 Extrem: Other: No edema Objective Data Active Medications Acetaminophen (Acetaminophen 325 Mg Tablet) 650 mg PO Q6H PRN PRN Reason: Pain, Mild 1-3,fever,headache Ascorbic Acid (Ascorbic Acid 500 Mg Tablet) 1,000 mg PO DAILY [facility] Last Admin: 10/11/24 08:07 Dose: 1,000 mg Documented By: LUCRETIA Calcium Carbonate (Calcium Carbonate 750 Mg Tab.Chew) 750 mg PO Q4H PRN PRN Reason: Heartburn Docusate Sodium (Docusate Sodium 100 Mg Capsule) 100 mg PO BID [facility] Last Admin: 10/11/24 20:11 Dose: 100 mg Documented By: MOIRA Imipramine HCl (Imipramine Hcl 50 Mg Tablet) 25 mg PO DAILY [facility] Last Admin: 10/11/24 08:08 Dose: 25 mg Documented By: LUCRETIA Lisinopril (Lisinopril 20 Mg Tablet) 20 mg PO DAILY [facility]; Protocol Last Admin: 10/11/24 08:08 Dose: 20 mg Documented By: LUCRETIA Magnesium Hydroxide (Milk Of Magnesia 30 Ml Oral.Susp) 30 ml PO DAILY PRN PRN Reason: Constipation Melatonin (Melatonin 3 Mg Tablet) 6 mg PO BEDTIME PRN PRN Reason: Insomnia Morphine Sulfate (Morphine Sulfate 4 Mg/Ml Cartridge) 4 mg IVPUSH Q4H PRN; Protocol PRN Reason: Pain, Severe (Pain Scale 7-10) Last Admin: 10/10/24 23:14 Dose: 4 mg Documented By: LIBBY Nicotine (Nicotine 21 Mg Patch.Td24) 21 mg TRANSDERMA DAILY [facility] Last Admin: 10/11/24 08:09 Dose: 21 mg Documented By: LUCRETIA Omeprazole (Omeprazole 40 Mg Capsule.Dr) 40 mg PO DAILY@0630 [facility] Last Admin: 10/12/24 06:02 Dose: 40 mg Documented By: MOIRA Ondansetron HCl (Ondansetron Hcl 4 Mg/2 Ml Vial) 4 mg IVPUSH Q6H PRN PRN Reason: Nausea and Vomiting Oxycodone HCl (Oxycodone Hcl Immed Release 5 Mg Tablet) 5 mg PO Q4H PRN PRN Reason: Pain, Moderate(Pain Scale 4-6) Last Admin: 10/12/24 03:17 Dose: 5 mg Documented By: MOIRA Polyethylene Glycol (Polyethylene Glycol 3350 17 Gm Powd.Pack) 17 gm PO DAILY [facility] Last Admin: 10/11/24 11:07 Dose: 17 gm Documented By: LUCRETIA Sodium Chloride (0.9 % Sodium Chloride Flush 3 Ml Syringe) 3 ml IVFLUSH QSHIFT [facility] Last Admin: 10/12/24 00:00 Dose: 3 ml Documented By: MOIRA Labs 10/11/24 11:37 10/11/24 05:06 Labs: Laboratory Results - last 24 hr 10/11/24 11:37 MCV 96.2 MCH 32.2 MCHC 33.5 RDW 12.7 Plt Count 200 MPV 11.1 Immature Gran % (Auto) 0.8 H Neut % (Auto) 73.3 H Lymph % (Auto) 12.4 L [place] % (Auto) 13.2 H Eos % (Auto) 0.0 Baso % (Auto) 0.3 Lymph # (Auto) 2.0 [place] # (Auto) 2.1 H Eos # (Auto) 0.0 Baso # (Auto) 0.1 Abs Immat Gran (auto) 0.13 H Absolute Neuts (auto) 11.7 H Absolute Nucleated RBC 0.000 Nucleated RBC % (auto) 0.0 Smear Tech's Comments VERIFIED Total Bilirubin 1.5 H Direct Bilirubin 0.8 H AST 78 H ALT 60 H Alkaline Phosphatase 99 Total Protein 6.5 Albumin 3.2 L Microbiology Microbiology Results: Microbiology 10/10/24 09:20 Blood Culture - Preliminary Blood - Venous No growth after 24 hours. 10/10/24 09:20 Blood Culture - Preliminary Blood - Venous No growth after 24 hours. Procedures Date of Service Date of Service: 10/12/24 Progress Note: A&P Assessment and plan (1) Cholecystitis: Status: Acute (2) S/P laparoscopic cholecystectomy: Status: Acute Plan Overall patient is improving and he is tolerating diet without nausea or vomiting. LFTs yesterday were slightly elevated compared to the previous studies. We will repeat labs this morning. He reports ambulating with a walker but does not feel he will need this at home. Time Spent With Patient Time: Total time managing care of this patient today ____ minutes. Quality Stroke Does the patient have a stroke diagnosis?: No VTE Prior VTE?: No VTE Risk Level:: Surgical - moderate VTE Device Contraindication: N/A - Device Ordered VTE Drug Contraindication: Treatment Not Indicated
[2024-10-12 08:52] LABS: Basophils Absolute Auto 0.1 X10*3/uL (0.0-0.2); Basophils Percent Auto 0.4 % (0-2); Hematocrit 36.6 % (42.0-52.0); Hemoglobin 12.5 g/dl (14.0-18.0); Imm Gran Abs Auto 0.11 X10*3/uL (0.00-0.03); Imm Gran Pct Auto 0.8 % (0.0-0.4); Lymphocytes Absolute Auto 1.9 X10*3/uL (1.2-4.9); Lymphocytes Percent Auto 13.9 % (20-40); MANUAL DIFF FLAG SCAN; Mean Corpuscular HGB Conc 34.2 g/dl (31.0-36.0); Mean Corpuscular Hemoglobin 32.6 pg (27.0-33.0); Mean Corpuscular Volume 95.6 fL (80.0-98.0); Monocytes Absolute Auto 2.3 X10*3/uL (0.1-1.2); Monocytes Percent Auto 16.2 % (2-11); Neutrophils Absolute Auto 9.6 x10*3/uL (2.0-8.3); Neutrophils Percent Auto 68.7 % (45-73); Platelet Count 226 X10*3/uL (160-400); Red Blood Count 3.83 X10*6/uL (4.60-5.80); Red Cell Distribution Width 12.6 % (11.0-16.0); SCAN SMEAR FLAG 1; White Blood Count 13.9 X10*3/uL (4.8-10.8)
[2024-10-12 09:09] LABS: Alanine Aminotransferase 63 U/L (0-40); Albumin Level 3.1 g/dL (3.5-5.0); Alkaline Phosphatase 116 U/L (39-117); Anion Gap 13 (12-20); Aspartate Amino Transferase 62 U/L (5-37); Bilirubin Direct 0.6 mg/dL (0.0-0.5); Bilirubin Total 1.2 mg/dL (0.0-1.0); Blood Urea Nitrogen 27 mg/dL (9-16); Calcium 10.9 mg/dL (8.4-10.2); Carbon Dioxide 22 mmol/L (22-29); Chloride 108 mmol/L (96-108); Creatinine Clr Calc Pharmacy 71.8; Estimated Glomerular Filt Rate > 60; Glucose Random 90 mg/dL (60-115); Potassium 3.8 mmol/L (3.3-5.1); Sodium 139 mmol/L (135-145); Total Protein 6.4 g/dL (6.5-8.0)
[2024-10-12] MEDS: polyethylene glycoL 3350 17 GM POWD.PACK PO (09:23)
[2024-10-12] MEDS: Nicotine 21 MG PATCH.TD24 TRANSDERMA (09:24)
[2024-10-12] MEDS: Ascorbic Acid 500 MG TABLET 1000 MG PO (09:25)
[2024-10-12] MEDS: Docusate Sodium 100 MG CAPSULE PO ×2 (09:26→20:30)
[2024-10-12] MEDS: lisinopriL 20 MG TABLET PO (09:26)
[2024-10-12] MEDS: Imipramine HCl 50 MG TABLET 25 MG PO (09:26)
[2024-10-12] MEDS: 0.9 % Sodium Chloride Flush 3 ML SYRINGE IVFLUSH ×4 (09:29→20:30)
[2024-10-12 10:10] LABS: SLIDE REVIEW VERIFIED
[2024-10-12 16:00] VITALS: BP 131/81; PULSE 76; RESP 18; TEMP 36.7; O2SAT 95
[2024-10-12 17:29] LABS: Appearance Urine Turbid; Color Urine Dark Yellow; Glucose Urine UA Negative (Negative); Leukocyte Esterase Urine Negative (Negative); Nitrite Urine Negative (Negative); Urine Blood Negative (Negative); Urine Ketones Negative (Negative); Urine Protein Trace mg/dL (Neg-Trace)
[2024-10-12 17:35] LABS: Bacteria Urine None Seen (None Seen); Hyaline Casts Urine 0-2 /LPF (0-2); RBC Urine 0-2 /HPF (0-2); Squamous Epithelial Cell Urine 0-2 /HPF (0-2); WBC Urine 0-5 /HPF (0-5)
[2024-10-12 19:47] VITALS: BP 142/76; PULSE 70; RESP 18; TEMP 36.2; O2SAT 94
[2024-10-13 03:54] VITALS: BP 136/74; PULSE 80; RESP 18; TEMP 36.1; O2SAT 97
[2024-10-13] MEDS: Omeprazole 40 MG CAPSULE.DR PO (05:50)
[2024-10-13 07:51] VITALS: BP 132/73; PULSE 66; RESP 16; TEMP 36.9; O2SAT 98
[2024-10-13 08:00] VITALS: O2SAT 98
[2024-10-13] MEDS: lisinopriL 20 MG TABLET PO (09:03)
[2024-10-13] MEDS: Imipramine HCl 50 MG TABLET 25 MG PO (09:03)
[2024-10-13] MEDS: polyethylene glycoL 3350 17 GM POWD.PACK PO (09:03)
[2024-10-13] MEDS: Ascorbic Acid 500 MG TABLET 1000 MG PO (09:03)
[2024-10-13] MEDS: Docusate Sodium 100 MG CAPSULE PO ×2 (09:04→20:27)
[2024-10-13] MEDS: Nicotine 21 MG PATCH.TD24 TRANSDERMA (09:04)
[2024-10-13] MEDS: 0.9 % Sodium Chloride Flush 3 ML SYRINGE IVFLUSH ×3 (09:05→20:27)
--- NOTE | 2024-10-13 10:20 | P.PNGS_ITS ---
Subjective Subjective Date of Service: 10/13/24 Interval history: Patient reports eating a small amount yesterday but denies nausea. He denies abdominal pain this morning. Seems mildly confused Physical Exam 2 Vital Signs: Vital Signs: Last Vital Signs Temp 98.5 F 10/13/24 07:51 Pulse 66 10/13/24 07:51 Resp 16 10/13/24 07:51 BP 132/73 10/13/24 07:51 Pulse Ox 98 10/13/24 08:00 O2 Del Method Room Air 10/13/24 08:00 O2 Flow Rate 3 10/10/24 16:35 FiO2 30 10/10/24 16:35 BMI result Body Mass Index 27.4 Const: General: comfortable Nutritional Appearance: well nourished Resp: Effort & Inspection: normal respiratory effort GI: Inspection: Yes normal to inspection Palpation (GI): Soft to palpation, nontender, no guarding and not rigid Extrem: General: Yes normal to inspection Objective Data Active Medications Acetaminophen (Acetaminophen 325 Mg Tablet) 650 mg PO Q6H PRN PRN Reason: Pain, Mild 1-3,fever,headache Ascorbic Acid (Ascorbic Acid 500 Mg Tablet) 1,000 mg PO DAILY [facility] Last Admin: 10/13/24 09:03 Dose: 1,000 mg Documented By: BERTIN Calcium Carbonate (Calcium Carbonate 750 Mg Tab.Chew) 750 mg PO Q4H PRN PRN Reason: Heartburn Docusate Sodium (Docusate Sodium 100 Mg Capsule) 100 mg PO BID [facility] Last Admin: 10/13/24 09:04 Dose: 100 mg Documented By: BERTIN Imipramine HCl (Imipramine Hcl 50 Mg Tablet) 25 mg PO DAILY [facility] Last Admin: 10/13/24 09:03 Dose: 25 mg Documented By: BERTIN Lisinopril (Lisinopril 20 Mg Tablet) 20 mg PO DAILY [facility]; Protocol Last Admin: 10/13/24 09:03 Dose: 20 mg Documented By: BERTIN Magnesium Hydroxide (Milk Of Magnesia 30 Ml Oral.Susp) 30 ml PO DAILY PRN PRN Reason: Constipation Melatonin (Melatonin 3 Mg Tablet) 6 mg PO BEDTIME PRN PRN Reason: Insomnia Morphine Sulfate (Morphine Sulfate 4 Mg/Ml Cartridge) 4 mg IVPUSH Q4H PRN; Protocol PRN Reason: Pain, Severe (Pain Scale 7-10) Last Admin: 10/10/24 23:14 Dose: 4 mg Documented By: LIBBY Nicotine (Nicotine 21 Mg Patch.Td24) 21 mg TRANSDERMA DAILY [facility] Last Admin: 10/13/24 09:04 Dose: 21 mg Documented By: BERTIN Omeprazole (Omeprazole 40 Mg Capsule.Dr) 40 mg PO DAILY@0630 [facility] Last Admin: 10/13/24 05:50 Dose: 40 mg Documented By: MELISSA Ondansetron HCl (Ondansetron Hcl 4 Mg/2 Ml Vial) 4 mg IVPUSH Q6H PRN PRN Reason: Nausea and Vomiting Oxycodone HCl (Oxycodone Hcl Immed Release 5 Mg Tablet) 5 mg PO Q4H PRN PRN Reason: Pain, Moderate(Pain Scale 4-6) Last Admin: 10/12/24 20:30 Dose: 5 mg Documented By: MELISSA Polyethylene Glycol (Polyethylene Glycol 3350 17 Gm Powd.Pack) 17 gm PO DAILY [facility] Last Admin: 10/13/24 09:03 Dose: 17 gm Documented By: BERTIN Sodium Chloride (0.9 % Sodium Chloride Flush 3 Ml Syringe) [facility] Last Admin: 10/13/24 09:05 Dose: 3 ml Documented By: BERTIN Labs 10/12/24 08:44 10/12/24 08:44 Labs: Laboratory Results - last 24 hr 10/12/24 16:30 Urine Color Dark Yellow Urine Appearance Turbid Urine pH 7.0 Ur Specific [place] 1.020 Urine Protein Trace Urine Glucose (UA) Negative Urine Ketones Negative Urine Blood Negative Urine Nitrite Negative Ur Leukocyte Esterase Negative Urine RBC 0-2 Urine WBC 0-5 Ur Squamous Epith Cells 0-2 Urine Bacteria None Seen Hyaline Casts 0-2 Microbiology Microbiology Results: Microbiology 10/10/24 09:20 Blood Culture - Preliminary Blood - Venous No growth after 48 hours. 10/10/24 09:20 Blood Culture - Preliminary Blood - Venous No growth after 48 hours. Procedures Date of Service Date of Service: 10/13/24 Progress Note: A&P Assessment and plan (1) S/P laparoscopic cholecystectomy: Status: Acute (2) Cholecystitis: Status: Acute Plan 69-year-old male patient status post laparoscopic cholecystectomy for gangrenous cholecystitis. WBC is improving although the patient appears somewhat confused this morning. LFTs are improving as well. We will continue to monitor. Discussed with the patient's yesterday as well. Time Spent With Patient Time: Total time managing care of this patient today ____ minutes. Quality Stroke Does the patient have a stroke diagnosis?: No VTE Prior VTE?: No VTE Risk Level:: Surgical - moderate VTE Device Contraindication: N/A - Device Ordered VTE Drug Contraindication: Treatment Not Indicated
[2024-10-13 16:00] VITALS: BP 146/78; PULSE 68; RESP 18; TEMP 36.7; O2SAT 98
[2024-10-13 19:39] VITALS: BP 147/78; PULSE 69; RESP 18; TEMP 36.6; O2SAT 93
[2024-10-14 02:59] VITALS: BP 146/75; PULSE 71; RESP 16; TEMP 36.5; O2SAT 98
[2024-10-14] MEDS: Omeprazole 40 MG CAPSULE.DR PO (06:17)
--- NOTE | 2024-10-14 06:40 | P.PNGS_ITS ---
Subjective Subjective Date of Service: 10/14/24 <[facility] [place] - Last Filed: 10/14/24 07:18> 10/14/24 <Maryjane Schrader PA-C - Last Filed: 10/14/24 10:01> 10/14/24 <Jaylen Bhardwaj MD - Last Filed: 10/14/24 10:47> Interval history: Patient seen and examined this morning. States he is tolerating diet well. States that he has had many soft bowel movements but denies diarrhea, nausea or abdominal pain. Denies fevers or chills. Denies shortness of breath. Does endorse slight sharp mid sternal chest pain when coughing. Patient is still confused this morning, will consult medicine. <[facility] - Last Filed: 10/14/24 07:18> Patient seen and examined this morning. States he is tolerating diet well. States that he has had many soft bowel movements but denies diarrhea, nausea or abdominal pain. Denies fevers or chills. Denies shortness of breath. Does endorse slight sharp mid sternal chest pain when coughing. <Maryjane Schrader PA-C - Last Filed: 10/14/24 10:01> Physical Exam 2 Vital Signs: Vital Signs: Last Vital Signs Temp 97.7 F 10/14/24 02:59 Pulse 71 10/14/24 02:59 Resp 16 10/14/24 02:59 BP 146/75 H 10/14/24 02:59 Pulse Ox 98 10/14/24 02:59 O2 Del Method Room Air 10/14/24 02:59 O2 Flow Rate 3 10/10/24 16:35 FiO2 30 10/10/24 16:35 BMI result Body Mass Index 27.4 <[facility] - Last Filed: 10/14/24 07:18> Const: Other: Patient sitting up in bed, awake, calm, in no acute distress. Orientated to self. <[facility] - Last Filed: 10/14/24 07:18> HEENT: Head: Yes normocephalic and Yes atraumatic <[facility] - Last Filed: 10/14/24 07:18> Eyes: Other: pupils unequal <Maryjane Schrader PA-C - Last Filed: 10/14/24 10:01> Sclerae: sclerae normal <Belzaq-JW-Ycrwcgd-Ah Esa - Last Filed: 10/14/24 07:18> Resp: Other: Rhonchi noted at bases of lungs <[facility] - Last Filed: 10/14/24 07:18> Effort & Inspection: normal respiratory effort and able to speak in complete sentences <Walyii-NU-Nryturd-Ah Esa - Last Filed: 10/14/24 07:18> Cardio: Rate: regular rate <[facility] - Last Filed: 10/14/24 07:18> Rhythm: regular rhythm <[facility] - Last Filed: 10/14/24 07:18> GI: Other: Abdomen is soft and non tender and non distended. Dressings intact. Bowel sounds appreciated. <Vtinim-MK-Ucgahli-Ah Esa - Last Filed: 10/14/24 07:18> Skin: General skin exam: no rashes or lesions noted and no jaundice < Maryjane Schrader PA-C - Last Filed: 10/14/24 10:01> Lesions: no lesions <Zjsipl-US-Yygqnwj-Ah Esa - Last Filed: 10/14/24 07:18> Rashes: no rashes <[facility] - Last Filed: 10/14/24 07:18> Neuro: Other: oriented x 1 <Maryjane Schrader PA-C - Last Filed: 10/14/24 10:01> Extrem: Other: Moving all extremities normally, no lower extremity edema noted. <Ybcavp-NK-Scktckr-Ah Esa - Last Filed: 10/14/24 07:18> Psych: Other: Orientated to self. <Boomfr-OU-Ytpiurg-Ah Esa - Last Filed: 10/14/24 07:18> Objective Data Active Medications Acetaminophen (Acetaminophen 325 Mg Tablet) 650 mg PO Q6H PRN PRN Reason: Pain, Mild 1-3,fever,headache Ascorbic Acid (Ascorbic Acid 500 Mg Tablet) 1,000 mg PO DAILY [facility] Last Admin: 10/13/24 09:03 Dose: 1,000 mg Documented By: BERTIN Calcium Carbonate (Calcium Carbonate 750 Mg Tab.Chew) 750 mg PO Q4H PRN PRN Reason: Heartburn Docusate Sodium (Docusate Sodium 100 Mg Capsule) 100 mg PO BID [facility] Last Admin: 10/13/24 20:27 Dose: 100 mg Documented By: LIBBY Imipramine HCl (Imipramine Hcl 50 Mg Tablet) 25 mg PO DAILY [facility] Last Admin: 10/13/24 09:03 Dose: 25 mg Documented By: BERTIN Lisinopril (Lisinopril 20 Mg Tablet) 20 mg PO DAILY [facility]; Protocol Last Admin: 10/13/24 09:03 Dose: 20 mg Documented By: BERTIN Magnesium Hydroxide (Milk Of Magnesia 30 Ml Oral.Susp) 30 ml PO DAILY PRN PRN Reason: Constipation Melatonin (Melatonin 3 Mg Tablet) 6 mg PO BEDTIME PRN PRN Reason: Insomnia Morphine Sulfate (Morphine Sulfate 4 Mg/Ml Cartridge) 4 mg IVPUSH Q4H PRN; Protocol PRN Reason: Pain, Severe (Pain Scale 7-10) Last Admin: 10/10/24 23:14 Dose: 4 mg Documented By: LIBBY Nicotine (Nicotine 21 Mg Patch.Td24) 21 mg TRANSDERMA DAILY [facility] Last Admin: 10/13/24 09:04 Dose: 21 mg Documented By: BERTIN Omeprazole (Omeprazole 40 Mg Capsule.) 40 mg PO DAILY@0630 [facility] Last Admin: 10/14/24 06:17 Dose: 40 mg Documented By: LIBBY Ondansetron HCl (Ondansetron Hcl 4 Mg/2 Ml Vial) 4 mg IVPUSH Q6H PRN PRN Reason: Nausea and Vomiting Oxycodone HCl (Oxycodone Hcl Immed Release 5 Mg Tablet) 5 mg PO Q4H PRN PRN Reason: Pain, Moderate(Pain Scale 4-6) Last Admin: 10/12/24 20:30 Dose: 5 mg Documented By: MELISSA Polyethylene Glycol (Polyethylene Glycol 3350 17 Gm Powd.Pack) 17 gm PO DAILY [facility] Last Admin: 10/13/24 09:03 Dose: 17 gm Documented By: BERTIN Sodium Chloride (0.9 % Sodium Chloride Flush 3 Ml Syringe) [facility] Last Admin: 10/13/24 20:27 Dose: 3 ml Documented By: LIBBY <[facility] - Last Filed: 10/14/24 07:18> Labs CBC & Chem 7: 10/12/24 08:44 10/12/24 08:44 <[facility] - Last Filed: 10/14/24 07:18> Procedures Date of Service Date of Service: 10/14/24 <[facility] - Last Filed: 10/14/24 07:18> 10/14/24 <Maryjane Schrader PA-C - Last Filed: 10/14/24 10:01> 10/14/24 <Jaylen Bhardwaj MD - Last Filed: 10/14/24 10:47> Progress Note: A&P Assessment and plan (1) Cholecystitis: Status: Acute <[facility] - Last Filed: 10/14/24 07:18> Assessment and Plan: Patient POD 4 s/p laparoscopic cholecystectomy for gangrenous cholecystitis. WBC and LFTs are improving. Abdominal exam benign. Vitals wnl. However, patient is still confused. We will continue to monitor. Continue pain medication PRN. Orientate patient to help with confusion. Increase activity, incentive spirometer. <[facility] - Last Filed: 10/14/24 07:18> Patient POD 4 s/p laparoscopic cholecystectomy for gangrenous cholecystitis. WBC and LFTs are improving. Abdominal exam benign. Vitals wnl. However, patient is still confused. We will continue to monitor. Continue pain medication PRN. Orientate patient to help with confusion. Increase activity, incentive spirometer. Seen independently from Cali MUKHERJEE. Patient POD #4 s/p lap meir for gangrenous cholecystitis. Has had periods of lucidness and confusion over the weekend which persists this morning and remains unsteady with ambulation per RN. Found to have aniscoria this morning on exam. VSS. Abd is benign. He denies headache, dizziness, lightheadedness. Will obtain hospitalist consult. <Maryjane Schrader PA-C - Last Filed: 10/14/24 10:01> Patient POD 4 s/p laparoscopic cholecystectomy for gangrenous cholecystitis. WBC and LFTs are improving. Abdominal exam benign. Vitals wnl. However, patient is still confused. We will continue to monitor. Continue pain medication PRN. Orientate patient to help with confusion. Increase activity, incentive spirometer. Seen independently from Cali MUKHERJEE. Patient POD #4 s/p lap meir for gangrenous cholecystitis. Has had periods of lucidness and confusion over the weekend which persists this morning and remains unsteady with ambulation per RN. Found to have aniscoria this morning on exam. VSS. Abd is benign. He denies headache, dizziness, lightheadedness. Will obtain hospitalist consult. As noted above. I spoke with Dr. Haider this morning about medical consultation and he will see patient today. I also this discussed the situation with the patient's who was on her way from [place] of [place] to [place] him, and will be arriving today. She states that while he/the patient was in the ER he was very disoriented and confused as well, which prompted ER head CT which demonstrated no acute findings <Jaylen Bhardwaj MD - Last Filed: 10/14/24 10:47> Time Spent With Patient Time: Total time managing care of this patient today ____ minutes. <[facility] [place] - Last Filed: 10/14/24 07:18> Quality Stroke Does the patient have a stroke diagnosis?: No <[facility] - Last Filed: 10/14/24 07:18> VTE Prior VTE?: No <[facility] - Last Filed: 10/14/24 07:18> VTE Risk Level:: Surgical - moderate <[facility] - Last Filed: 10/14/24 07:18> VTE Device Contraindication: N/A - Device Ordered <[facility] - Last Filed: 10/14/24 07:18> VTE Drug Contraindication: Treatment Not Indicated <Gafuwp-LC-Jasoqsw-Ah Cali - Last Filed: 10/14/24 07:18>
[2024-10-14 08:00] VITALS: BP 124/79; PULSE 72; RESP 17; TEMP 36.3; O2SAT 97; O2SAT 98
[2024-10-14] MEDS: Docusate Sodium 100 MG CAPSULE PO (08:29)
[2024-10-14] MEDS: Ascorbic Acid 500 MG TABLET 1000 MG PO (08:29)
[2024-10-14] MEDS: lisinopriL 20 MG TABLET PO (08:29)
[2024-10-14] MEDS: Imipramine HCl 50 MG TABLET 25 MG PO (08:29)
[2024-10-14] MEDS: Nicotine 21 MG PATCH.TD24 TRANSDERMA (08:30)
[2024-10-14] MEDS: polyethylene glycoL 3350 17 GM POWD.PACK PO (08:31)
[2024-10-14] MEDS: 0.9 % Sodium Chloride Flush 3 ML SYRINGE IVFLUSH ×3 (09:49→20:12)
[2024-10-14] MEDS: LORazepam 2 MG/ML VIAL 1 MG IVPUSH ×2 (09:49→12:24)
[2024-10-14 10:15] LABS: Ammonia 30 umol/L (13-55)
--- NOTE | 2024-10-14 10:24 | PC.NURSE ---
Patient had fall in rm 373 at 9:55 witnessed by . Patient was found by the bedside kneeling on the floor. Patient's reported that patient got up out of recliner chair and fell to knees without hitting head. When arriving to the room patient got up to standing off the floor and continued to fall backwards, catching himself on the bed raining and recliner chair. Patient helped up by staff and laid in bed. No pain reported from patient full ROM in all extremities. Nuero assessment within normal limits. 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 Fall reported to MD Haider and distribution center supervisor Jazmin as well as Charge Nurse.
[2024-10-14 10:27] VITALS: BP 126/85; PULSE 97; RESP 18; TEMP 36.2; O2SAT 97
[2024-10-14 10:37] VITALS: BP 126/85; PULSE 97; RESP 18; TEMP 36.2; O2SAT 97
--- NOTE | 2024-10-14 10:37 | PM.NEUROCN ---
History of Present Illness Data of Consult Service Date: 10/14/24 Primary Care Provider: None Physician [facility] Reason for consult: Confusion 69 years old man who I saw with his family around his bedside. According to emergency room notes, he came to hospital with nausea vomiting and epigastric pain and was diagnosed with acute cholecystitis for which she had surgical treatment. Family reported that even couple of days before that, he got confused. He was not drinking alcohol and was not exposed to any new chemical. There was no obvious explanation for confusion and they said that that was the reason he came to hospital. He was not febrile and his initial head CT did not reveal any significant or acute abnormality. Some chronic changes were noted. He was not known to have any seizure disorder. He was noted to be confused and this consultation was requested. Review of Systems Review of Systems: As per HPI [facility] Past Medical History Medical History Acid reflux Prostate CA HTN (hypertension) Surgical History Surgical History History of prostate surgery History of rotator cuff surgery History of back surgery Social History Social History Household Members: Spouse Housing: Other Do you presently have visiting nurse or other home services: No Patient Tobacco Use Status: Current someday Tobacco user Tobacco use type: Cigarette Cigarette Packs Per Day: 2 Cigarettes Per Day: 40.0 Smoked in Last 30 Days: Yes Patient Interested in Nicotine Replacement: Yes Patient Given Instructions on How to Stop Smoking: No Second Hand Smoke Exposure: Yes Use of substances other than those prescribed or required for medical reasons: No Currently Displaying Signs/Symptoms of Drug Intoxication Withdrawal: No Any prior treatment program specific to substance use: No Have you been hit, kicked, punched, or otherwise hurt by someone within the past year? If so, by whom?: No Do you feel safe in your current relationship?: Yes Is there a partner from a previous relationship who is making you feel unsafe now?: No Are you made to feel afraid or neglected: No Are you DNR?: No Advance Directives: No Advance Directives Information Provided: Yes Advance Directives on File: No Do you have a plan to hurt others: No Plan Recently lost weight without trying: No Nutrition Risks: No Nutritional Risk Poor oral hygiene: No service: No Meds Allergies Allergy/AdvReac Type Severity Reaction Status Date / Time No Known Allergies Allergy Verified 10/10/24 07:49 Active Medications: Current Medications Acetaminophen (Acetaminophen 325 Mg Tablet) 650 mg PO Q6H PRN PRN Reason: Pain, Mild 1-3,fever,headache Ascorbic Acid (Ascorbic Acid 500 Mg Tablet) 1,000 mg PO DAILY [facility] Last Admin: 10/14/24 08:29 Dose: 1,000 mg Calcium Carbonate (Calcium Carbonate 750 Mg Tab.Chew) 750 mg PO Q4H PRN PRN Reason: Heartburn Docusate Sodium (Docusate Sodium 100 Mg Capsule) 100 mg PO BID [facility] Last Admin: 10/14/24 08:29 Dose: 100 mg Imipramine HCl (Imipramine Hcl 50 Mg Tablet) 25 mg PO DAILY [facility] Last Admin: 10/14/24 08:29 Dose: 25 mg Lisinopril (Lisinopril 20 Mg Tablet) 20 mg PO DAILY [facility]; Protocol Last Admin: 10/14/24 08:29 Dose: 20 mg Magnesium Hydroxide (Milk Of Magnesia 30 Ml Oral.Susp) 30 ml PO DAILY PRN PRN Reason: Constipation Melatonin (Melatonin 3 Mg Tablet) 6 mg PO BEDTIME PRN PRN Reason: Insomnia Morphine Sulfate (Morphine Sulfate 4 Mg/Ml Cartridge) 4 mg IVPUSH Q4H PRN; Protocol PRN Reason: Pain, Severe (Pain Scale 7-10) Last Admin: 10/10/24 23:14 Dose: 4 mg Nicotine (Nicotine 21 Mg Patch.Td24) 21 mg TRANSDERMA DAILY [facility] Last Admin: 10/14/24 08:30 Dose: 21 mg Omeprazole (Omeprazole 40 Mg Capsule.Dr) 40 mg PO DAILY@0630 [facility] Last Admin: 10/14/24 06:17 Dose: 40 mg Ondansetron HCl (Ondansetron Hcl 4 Mg/2 Ml Vial) 4 mg IVPUSH Q6H PRN PRN Reason: Nausea and Vomiting Oxycodone HCl (Oxycodone Hcl Immed Release 5 Mg Tablet) 5 mg PO Q4H PRN PRN Reason: Pain, Moderate(Pain Scale 4-6) Last Admin: 10/12/24 20:30 Dose: 5 mg Polyethylene Glycol (Polyethylene Glycol 3350 17 Gm Powd.Pack) 17 gm PO DAILY [facility] Last Admin: 10/14/24 08:31 Dose: 17 gm Sodium Chloride (0.9 % Sodium Chloride Flush 3 Ml Syringe) 3 ml IVFLUSH QSHIFT [facility] Last Admin: 10/14/24 09:49 Dose: 3 ml Home Medications ?Medication ?Instructions ?Recorded ?Confirmed ?Last Taken ?Type ascorbic acid (vitamin C) 500 mg 1,000 mg PO DAILY 10/10/24 10/10/24 10/09/24 History tablet (Vitamin C) imipramine HCl 25 mg tablet 25 mg PO DAILY 10/10/24 10/10/24 10/09/24 History lisinopril 20 mg tablet 20 mg PO DAILY blood pressure 10/10/24 10/10/24 10/09/24 History omeprazole 40 mg capsule,delayed 40 mg PO DAILY 10/10/24 10/10/24 10/09/24 History release Physical Exam Vital Signs: Vital Signs: Last Vital Signs Temp 97.1 F 10/14/24 10:27 Pulse 97 10/14/24 10:27 Resp 18 10/14/24 10:27 BP 126/85 10/14/24 10:27 Pulse Ox 97 10/14/24 10:27 O2 Del Method Room Air 10/14/24 10:27 O2 Flow Rate 3 10/10/24 16:35 FiO2 30 10/10/24 16:35 BMI result Body Mass Index 27.4 Neuro: Other: He is somewhat drowsy looking around and sometime made eye contact but spontaneity and fluency of speech were diminished. He comprehended but not consistently. He was having problem following one-step commands like showing me his left hand or 2 fingers. Face was symmetrical and extraocular muscles were intact. Visual obregon seem to be okay. There was no obvious abnormal movement. Deep tendon reflexes were trace to absent with flexor plantars. Results Labs 10/12/24 08:44 10/12/24 08:44 Labs: Head CT revealed mild ischemic changes specially in left basal ganglia and minimal diffuse cerebral atrophy. Microbiology Microbiology Results: Microbiology 10/10/24 09:20 Blood - Venous Blood Culture - Preliminary No growth after 48 hours. 10/10/24 09:20 Blood - Venous Blood Culture - Preliminary No growth after 48 hours. Assessment and Plan (1) Encephalopathy: Qualifiers: Encephalopathy type: unspecified encephalopathy Qualified Code(s): G93.40 - Encephalopathy, unspecified Status: Acute 69 years old man with encephalopathy of unknown etiology with recent diagnosis of acute cholecystitis status post surgery. His liver enzymes were somewhat elevated what would not explain his overall situation. Ammonia level was not that high. There was no obvious metabolic abnormality or sign of infection. My recommendation is to obtain an MRI of brain and an EEG. I also recommend obtaining sed rate, Lyme serology, HIV and syphilis serology. Otherwise, rule out any common infections. Procedures Date of Service Date of Service: 10/14/24
--- NOTE | 2024-10-14 12:24 | P.CONHOSP_ITS ---
History of Present Illness Data of Consult Service Date: 10/14/24 Primary Care Provider: Alvina Physician HPI Reason for consult: Encephalopathy 69-year-old male status post cholecystectomy developed acute mental status changes that have worsened since surgery date 10/10/2024. Discussed with ; was having some issues at home prior to hospitalization. 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 and does not abuse illicit drugs Review of Systems 2 Review of Systems: Unobtainable [facility] Medical History Acid reflux Prostate CA HTN (hypertension) Surgical History History of prostate surgery History of rotator cuff surgery History of back surgery Social History Household Members: Spouse Housing: Other Do you presently have visiting nurse or other home services: No Patient Tobacco Use Status: Current someday Tobacco user Tobacco use type: Cigarette Cigarette Packs Per Day: 2 Cigarettes Per Day: 40.0 Smoked in Last 30 Days: Yes Patient Interested in Nicotine Replacement: Yes Patient Given Instructions on How to Stop Smoking: No Second Hand Smoke Exposure: Yes Use of substances other than those prescribed or required for medical reasons: No Currently Displaying Signs/Symptoms of Drug Intoxication Withdrawal: No Any prior treatment program specific to substance use: No Have you been hit, kicked, punched, or otherwise hurt by someone within the past year? If so, by whom?: No Do you feel safe in your current relationship?: Yes Is there a partner from a previous relationship who is making you feel unsafe now?: No Are you made to feel afraid or neglected: No Are you DNR?: No Advance Directives: No Advance Directives Information Provided: Yes Advance Directives on File: No Do you have a plan to hurt others: No Plan Recently lost weight without trying: No Nutrition Risks: No Nutritional Risk Poor oral hygiene: No service: No Meds Allergies Allergy/AdvReac Type Severity Reaction Status Date / Time No Known Allergies Allergy Verified 10/10/24 07:49 Active Medications: Current Medications Acetaminophen (Acetaminophen 325 Mg Tablet) 650 mg PO Q6H PRN PRN Reason: Pain, Mild 1-3,fever,headache Ascorbic Acid (Ascorbic Acid 500 Mg Tablet) 1,000 mg PO DAILY [facility] Last Admin: 10/14/24 08:29 Dose: 1,000 mg Calcium Carbonate (Calcium Carbonate 750 Mg Tab.Chew) 750 mg PO Q4H PRN PRN Reason: Heartburn Docusate Sodium (Docusate Sodium 100 Mg Capsule) 100 mg PO BID [facility] Last Admin: 10/14/24 08:29 Dose: 100 mg Imipramine HCl (Imipramine Hcl 50 Mg Tablet) 25 mg PO DAILY [facility] Last Admin: 10/14/24 08:29 Dose: 25 mg Lisinopril (Lisinopril 20 Mg Tablet) 20 mg PO DAILY [facility]; Protocol Last Admin: 10/14/24 08:29 Dose: 20 mg Magnesium Hydroxide (Milk Of Magnesia 30 Ml Oral.Susp) 30 ml PO DAILY PRN PRN Reason: Constipation Melatonin (Melatonin 3 Mg Tablet) 6 mg PO BEDTIME PRN PRN Reason: Insomnia Morphine Sulfate (Morphine Sulfate 4 Mg/Ml Cartridge) 4 mg IVPUSH Q4H PRN; Protocol PRN Reason: Pain, Severe (Pain Scale 7-10) Last Admin: 10/10/24 23:14 Dose: 4 mg Nicotine (Nicotine 21 Mg Patch.Td24) 21 mg TRANSDERMA DAILY [facility] Last Admin: 10/14/24 08:30 Dose: 21 mg Omeprazole (Omeprazole 40 Mg Capsule.Dr) 40 mg PO DAILY@0630 [facility] Last Admin: 10/14/24 06:17 Dose: 40 mg Ondansetron HCl (Ondansetron Hcl 4 Mg/2 Ml Vial) 4 mg IVPUSH Q6H PRN PRN Reason: Nausea and Vomiting Oxycodone HCl (Oxycodone Hcl Immed Release 5 Mg Tablet) 5 mg PO Q4H PRN PRN Reason: Pain, Moderate(Pain Scale 4-6) Last Admin: 10/12/24 20:30 Dose: 5 mg Polyethylene Glycol (Polyethylene Glycol 3350 17 Gm Powd.Pack) 17 gm PO DAILY [facility] Last Admin: 10/14/24 08:31 Dose: 17 gm Sodium Chloride (0.9 % Sodium Chloride Flush 3 Ml Syringe) 3 ml IVFLUSH QSHIFT [facility] Last Admin: 10/14/24 09:49 Dose: 3 ml Home Medications ?Medication ?Instructions ?Recorded ?Confirmed ?Last Taken ?Type ascorbic acid (vitamin C) 500 mg 1,000 mg PO DAILY 0110/10/24 10/09/24 History tablet (Vitamin C) imipramine HCl 25 mg tablet 25 mg PO DAILY 10/10/24 10/10/24 10/09/24 History lisinopril 20 mg tablet 20 mg PO DAILY blood pressure 10/10/24 10/10/24 10/09/24 History omeprazole 40 mg capsule,delayed 40 mg PO DAILY 10/10/24 10/10/24 10/09/24 History release Physical Exam 2 Vital Signs and Narrative: Vital Signs: Last Vital Signs Temp 97.1 F 10/14/24 10:37 Pulse 97 10/14/24 10:37 Resp 18 10/14/24 10:37 BP 126/85 10/14/24 10:37 Pulse Ox 97 10/14/24 10:37 O2 Del Method Room Air 10/14/24 10:27 O2 Flow Rate 3 10/10/24 16:35 FiO2 30 10/10/24 16:35 BMI result Body Mass Index 27.4 Const: Other: Awake agitated and confused Resp: Other: Clear to auscultation bilaterally no rales rhonchi or wheezes Cardio: Other: No S4; positive S1-S2; no S3 murmurs rubs or gallops GI: Other: Soft nontender nondistended normoactive bowel sounds Neuro: Other: Confused/agitated. 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 Surgery uneventful per notes. Postoperatively patient became confused agitated that has worsened over the last 48-72 hours. Blood cultures has been negative times 48 hours. Urine was bland in the postoperative 1. Metabolic encephalopathy -we will utilize Ativan/Haldol as necessary to complete imaging and for patient and staff safety -MRI of brain -sed rate, Lyme titers, HIV, syphilis screen as per Neurology -EEG We will follow
[2024-10-14] MEDS: Haloperidol Lactate 5 MG/ML VIAL IM (12:25)
[2024-10-14 13:38] LABS: Erythrocyte Sedimentation Rate 86 MM/HR (0-15)
--- NOTE | 2024-10-14 13:59 | MHC.CM.PN ---
EMR REVIEWED AND PER MD ROUNDS, PT IS NOT MEDICALLY CLEARED FOR DC. (ENCEPHOLOPATHIC) IN FROM [place] (WHERE SHE AND PT LIVE) AND AT BEDSIDE. VERY CONCERNED, SUPPORT OFFERED. CM WILL CONTINUE TO FOLLOW FOR DC PLAN/NEEDS.
[2024-10-14] MEDS: Thiamine HCL 100 MG in 0.9 % Sodium Chloride 100 ML 202 MG IV ×2 (15:11→20:12)
[2024-10-14 15:13] VITALS: BP 117/68; PULSE 73; RESP 18; TEMP 36.5; O2SAT 97
--- NOTE | 2024-10-14 19:30 | PM.EVENT ---
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 give asa,will obtain lipid profile /PT/OT Time Spent With Patient Time: Total time managing care of this patient today ____ minutes.
[2024-10-14] MEDS: Aspirin Enteric Coated 81 MG TABLET.DR PO (20:13)
[2024-10-14 23:25] VITALS: BP 122/72; PULSE 66; RESP 18; TEMP 36.4; O2SAT 95
--- NOTE | 2024-10-15 | EEG_ITS ---
This is a 16-channel EEG with an EKG lead. The patient is reported awake and drowsy during the tracing. Background EEG rhythm is 7 to 8 hertz 5 to 50 microvolt posteriorly, lower amplitude fast anteriorly. Some lead and muscle artifacts are noted. Photic stimulation does not produce any significant driving. Hyperventilation is not performed. Cardiac lead does not reveal any significant abnormality. No sharp wave spikes or paroxysmal tendency noted. IMPRESSION: Generalized slowing with no evidence of seizure disorder. MD ALEXIA Cronin/ROHIT / [id number]
[2024-10-15] MEDS: Omeprazole 40 MG CAPSULE.DR PO (06:03)
--- NOTE | 2024-10-15 06:40 | PM.PNGS ---
Subjective Subjective Date of Service: 10/15/24 <[facility] - Last Filed: 10/15/24 06:58> 10/15/24 <Maryjane Schrader PA-C - Last Filed: 10/15/24 07:51> 10/15/24 <Jaylen Bhardwaj MD - Last Filed: 10/15/24 07:55> Interval history: Patient seen and examined at bedside this morning. Examination limited due to Altered mental status. Sitter present in room. States he feels good. Denies pain, chest pain, difficulty breathing, abdominal pain or nausea or vomiting. States he is urinating without difficulty and is normal having bowel movements. <[facility] - Last Filed: 10/15/24 06:58> Physical Exam Vital Signs: Vital Signs: Last Vital Signs Temp 97.5 F 10/14/24 23:25 Pulse 66 10/14/24 23:25 Resp 18 10/14/24 23:25 BP 122/72 10/14/24 23:25 Pulse Ox 95 10/14/24 23:25 O2 Del Method Room Air 10/14/24 23:25 O2 Flow Rate 3 10/10/24 16:35 FiO2 30 10/10/24 16:35 BMI result Body Mass Index 27.4 <[facility] - Last Filed: 10/15/24 06:58> Const: Other: Laying in bed, awake, calm. in no acute distress, orientated to self. <[facility] - Last Filed: 10/15/24 06:58> HEENT: Head: Yes normocephalic and Yes atraumatic <[facility] - Last Filed: 10/15/24 06:58> Resp: Other: limited due to AMS. No increased work of breathing <[facility] - Last Filed: 10/15/24 06:58> Other: No increased work of breathing <Maryjane Schrader PA-C - Last Filed: 10/15/24 07:51> Cardio: Other: Regular rate and rhythm. <[facility] - Last Filed: 10/15/24 06:58> GI: Other: Abdomen soft and non tender, non distended. Steri strips and bandages in place. <Ycijlq-HB-Ohqgetg-Ah Esa - Last Filed: 10/15/24 06:58> Inspection: Yes normal to inspection <[facility] - Last Filed: 10/15/24 06:58> Skin: General skin exam: no rashes or lesions noted and no jaundice <Maryjane Schrader PA-C - Last Filed: 10/15/24 07:51> Neuro: Other: Patient only orientated to self. Difficultly with following commands. <[facility] - Last Filed: 10/15/24 06:58> Extrem: Other: Moving all extremities normally. Limited due to AMS. <[facility]gqbqb-LN[facility] - Last Filed: 10/15/24 06:58> Objective Data Active Medications Acetaminophen (Acetaminophen 325 Mg Tablet) 650 mg PO Q6H PRN PRN Reason: Pain, Mild 1-3,fever,headache Ascorbic Acid (Ascorbic Acid 500 Mg Tablet) 1,000 mg PO DAILY [facility] Last Admin: 10/14/24 08:29 Dose: 1,000 mg Documented By: BERTIN Calcium Carbonate (Calcium Carbonate 750 Mg Tab.Chew) 750 mg PO Q4H PRN PRN Reason: Heartburn Docusate Sodium (Docusate Sodium 100 Mg Capsule) 100 mg PO BID [facility] Last Admin: 10/14/24 20:19 Dose: Not Given Documented By: ZANA Non-Admin Reason: pt too drowsy Thiamine HCl 100 mg/ Sodium (Chloride) 101 mls @ 202 mls/hr IV BID [facility] Last Infusion: 10/14/24 20:45 Dose: Infused Documented By: ZANA Imipramine HCl (Imipramine Hcl 50 Mg Tablet) 25 mg PO DAILY [facility] Last Admin: 10/14/24 08:29 Dose: 25 mg Documented By: BERTIN Lisinopril (Lisinopril 20 Mg Tablet) 20 mg PO DAILY [facility]; Protocol Last Admin: 10/14/24 08:29 Dose: 20 mg Documented By: BERTIN Magnesium Hydroxide (Milk Of Magnesia 30 Ml Oral.Susp) 30 ml PO DAILY PRN PRN Reason: Constipation Melatonin (Melatonin 3 Mg Tablet) 6 mg PO BEDTIME PRN PRN Reason: Insomnia Morphine Sulfate (Morphine Sulfate 4 Mg/Ml Cartridge) 4 mg IVPUSH Q4H PRN; Protocol PRN Reason: Pain, Severe (Pain Scale 7-10) Last Admin: 10/10/24 23:14 Dose: 4 mg Documented By: LIBBY Nicotine (Nicotine 21 Mg Patch.Td24) 21 mg TRANSDERMA DAILY [facility] Last Admin: 10/14/24 08:30 Dose: 21 mg Documented By: BERTIN Omeprazole (Omeprazole 40 Mg Capsule.Dr) 40 mg PO DAILY@0630 [facility] Last Admin: 10/15/24 06:03 Dose: 40 mg Documented By: ZANA Ondansetron HCl (Ondansetron Hcl 4 Mg/2 Ml Vial) 4 mg IVPUSH Q6H PRN PRN Reason: Nausea and Vomiting Oxycodone HCl (Oxycodone Hcl Immed Release 5 Mg Tablet) 5 mg PO Q4H PRN PRN Reason: Pain, Moderate(Pain Scale 4-6) Last Admin: 10/12/24 20:30 Dose: 5 mg Documented By: MELISSA Polyethylene Glycol (Polyethylene Glycol 3350 17 Gm Powd.Pack) 17 gm PO DAILY [facility] Last Admin: 10/14/24 08:31 Dose: 17 gm Documented By: BERTIN Sodium Chloride (0.9 % Sodium Chloride Flush 3 Ml Syringe) 3 ml IVFLUSH QSHIFT [facility] Last Admin: 10/14/24 20:12 Dose: 3 ml Documented By: ZANA <Rwnoit-XO-Nckddll-Ah Esa - Last Filed: 10/15/24 06:58> Labs CBC & Chem 7: 10/12/24 08:44 10/12/24 08:44 <[facility] - Last Filed: 10/15/24 06:58> Labs: Laboratory Results - last 24 hr 10/14/24 10/14/24 09:38 12:54 ESR 86 H Ammonia 30 <[facility] - Last Filed: 10/15/24 06:58> Procedures Date of Service Date of Service: 10/15/24 <[facility] - Last Filed: 10/15/24 06:58> 10/15/24 <Maryjane Schrader PA-C - Last Filed: 10/15/24 07:51> 10/15/24 <Jaylen Bhardwaj MD - Last Filed: 10/15/24 07:55> Progress Note: A&P Assessment and plan (1) S/P laparoscopic cholecystectomy: Status: Acute <[facility] - Last Filed: 10/15/24 06:58> (2) Encephalopathy: Status: Acute <[facility] - Last Filed: 10/15/24 06:58> Assessment and Plan: Patient is POD 5 s/p laparoscopic cholecystectomy for gangrenous cholecystitis. WBC and LFTs are improving. Abdominal exam benign. Vitals wnl. ESR high at 86. Patient was consulted by medicine yestderday due to continued confusion and disorientation. 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 Patient was started on ASA. Serology and Lipid panel pending. Medicine and neurology will continue to follow. Patient doing ok from surgical standpoint as abdominal exam is benign, patient is eating, drinking, urinating and having bowel movements without difficulty. <Huvtwt-VF-Sejigdy-Ah Esa - Last Filed: 10/15/24 06:58> Patient is POD 5 s/p laparoscopic cholecystectomy for gangrenous cholecystitis. WBC and LFTs are improving. Abdominal exam benign. Vitals wnl. ESR high at 86. Patient was consulted by medicine yestderday due to continued confusion and disorientation. 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 Patient was started on ASA. Serology and Lipid panel pending. Medicine and neurology will continue to follow. Patient doing ok from surgical standpoint as abdominal exam is benign, patient is eating, drinking, urinating and having bowel movements without difficulty. Seen independently from Cali MUKHERJEE. Patient POD #5 s/p lap meir for acute gangrenous cholecystitis. He remained confused yesterday and therefore hospitalist consult obtained. Also sustained witnessed fall. Patient tolerating solid diet, moving bowels, pain minimal. Abd benign. No acute surgical issues. Concern for ETOH withdrawal. Patient to be transferred to medical service for further treatment. Can f/u in office in 1 week following discharge. <Maryjane Schrader PA-C - Last Filed: 10/15/24 07:51> Patient is POD 5 s/p laparoscopic cholecystectomy for gangrenous cholecystitis. WBC and LFTs are improving. Abdominal exam benign. Vitals wnl. ESR high at 86. Patient was consulted by medicine yestderday due to continued confusion and disorientation. 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 Patient was started on ASA. Serology and Lipid panel pending. Medicine and neurology will continue to follow. Patient doing ok from surgical standpoint as abdominal exam is benign, patient is eating, drinking, urinating and having bowel movements without difficulty. Seen independently from Cali MUKHERJEE. Patient POD #5 s/p lap meir for acute gangrenous cholecystitis. He remained confused yesterday and therefore hospitalist consult obtained. Also sustained witnessed fall. Patient tolerating solid diet, moving bowels, pain minimal. Abd benign. No acute surgical issues. Concern for ETOH withdrawal. Patient to be transferred to medical service for further treatment. Can f/u in office in 1 week following discharge. As noted above <Jaylen Bhardwaj MD - Last Filed: 10/15/24 07:55> Time Spent With Patient Time: Total time managing care of this patient today ____ minutes. <[facility] - Last Filed: 10/15/24 06:58> Quality Stroke Does the patient have a stroke diagnosis?: No <[facility] - Last Filed: 10/15/24 06:58> VTE Prior VTE?: No <[facility] - Last Filed: 10/15/24 06:58> VTE Risk Level:: Surgical - moderate <[facility] - Last Filed: 10/15/24 06:58> VTE Device Contraindication: N/A - Device Ordered <[facility] - Last Filed: 10/15/24 06:58> VTE Drug Contraindication: Treatment Not Indicated <[facility] - Last Filed: 10/15/24 06:58>
[2024-10-15 06:44] LABS: Cholesterol 145 mg/dL (<200); HDL Cholesterol 21 mg/dL (>40); LDL Cholesterol Calculated 98 mg/dL (<100); Triglycerides 132 mg/dL (<150)
[2024-10-15 08:10] LABS: Syphilis Screen Nonreactive (Nonreactive)
[2024-10-15 08:14] VITALS: BP 107/67; PULSE 82; RESP 18; TEMP 37; O2SAT 94
[2024-10-15 08:35] LABS: HIV AB/AG Nonreactive (Nonreactive); HIV Num 1 0.09 S/CO (0.00-0.99)
[2024-10-15] MEDS: 0.9 % Sodium Chloride Flush 3 ML SYRINGE IVFLUSH ×3 (09:28→19:56)
[2024-10-15] MEDS: Nicotine 21 MG PATCH.TD24 TRANSDERMA (09:29)
[2024-10-15] MEDS: lisinopriL 20 MG TABLET PO (09:31)
[2024-10-15] MEDS: Imipramine HCl 50 MG TABLET 25 MG PO (09:31)
[2024-10-15] MEDS: Ascorbic Acid 500 MG TABLET 1000 MG PO (09:31)
[2024-10-15] MEDS: polyethylene glycoL 3350 17 GM POWD.PACK PO (09:32)
[2024-10-15] MEDS: Docusate Sodium 100 MG CAPSULE PO (09:32)
[2024-10-15] MEDS: Thiamine HCL 100 MG in 0.9 % Sodium Chloride 100 ML 202 MG IV ×2 (09:48→19:55)
--- NOTE | 2024-10-15 11:36 | MHC.STROKE ---
Met with patient and in room 364. Pt awake, alert. Answers most questions appropriately however forgetful and seems slightly confused. Pt sitting up tolerating PO without incident. Reviewed with patient and Griselda the stroke that was seen on MRI. We discussed stroke education and stroke pamphlet provided. We reviewed the whole pamphlet in detail. Educational pictures also provided to patient/ Discussed the case with Dr. Chávez. He wants to further investigate the patient's presentation with an EEG. Dr. Haider aware and EEG to be ordered. In the meantime, stroke measures put into place. Risk factors discussed in detail. This includes medical history, medication history, smoking, alcohol use, diet, activity, stress/work Patient and pleasant and engaged during entire conversation. Pt/ are from out of town so there were some concerns in regards to discharge plan/potential rehab. Will continue to assist as needed.
--- NOTE | 2024-10-15 12:25 | PC.NURSE ---
held Phenobarb doses for now, states pt may need it later, will d/c based on presentation and neuro consult
--- NOTE | 2024-10-15 12:54 | P.PNIM_ITS ---
Subjective Subjective Date of Service: 10/15/24 Interval History: Marked improvement in the last 24 hours. No additional Ativan or Haldol required. Tolerated MRI. states closer to baseline Review of Systems Unobtainable Physical Exam 2 Vital Signs: Vital Signs: Last Vital Signs Temp 98.6 F 10/15/24 08:14 Pulse 82 10/15/24 08:14 Resp 18 10/15/24 08:14 BP 107/67 10/15/24 08:14 Pulse Ox 94 10/15/24 08:14 O2 Del Method Room Air 10/15/24 08:14 O2 Flow Rate 3 10/10/24 16:35 FiO2 30 10/10/24 16:35 BMI result Body Mass Index 27.4 Const: Other: Awake agitated and confused Resp: Other: Clear to auscultation bilaterally no rales rhonchi or wheezes Cardio: Other: No S4; positive S1-S2; no S3 murmurs rubs or gallops GI: Other: Soft nontender nondistended normoactive bowel sounds Neuro: Other: Confused/agitated. 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) moving all extremities with equal power Extrem: Other: No edema bilaterally Objective Data Active Medications Acetaminophen (Acetaminophen 325 Mg Tablet) 650 mg PO Q6H PRN PRN Reason: Pain, Mild 1-3,fever,headache Ascorbic Acid (Ascorbic Acid 500 Mg Tablet) 1,000 mg PO DAILY [facility] Last Admin: 10/15/24 09:31 Dose: 1,000 mg Documented By: KATINA Calcium Carbonate (Calcium Carbonate 750 Mg Tab.Chew) 750 mg PO Q4H PRN PRN Reason: Heartburn Docusate Sodium (Docusate Sodium 100 Mg Capsule) 100 mg PO BID [facility] Last Admin: 10/15/24 09:32 Dose: 100 mg Documented By: KATINA Thiamine HCl 100 mg/ Sodium (Chloride) 101 mls @ 202 mls/hr IV BID [facility] Last Infusion: 10/15/24 10:38 Dose: Infused Documented By: KATINA Imipramine HCl (Imipramine Hcl 50 Mg Tablet) 25 mg PO DAILY [facility] Last Admin: 10/15/24 09:31 Dose: 25 mg Documented By: KATINA Lisinopril (Lisinopril 20 Mg Tablet) 20 mg PO DAILY [facility]; Protocol Last Admin: 10/15/24 09:31 Dose: 20 mg Documented By: KATINA Magnesium Hydroxide (Milk Of Magnesia 30 Ml Oral.Susp) 30 ml PO DAILY PRN PRN Reason: Constipation Melatonin (Melatonin 3 Mg Tablet) 6 mg PO BEDTIME PRN PRN Reason: Insomnia Nicotine (Nicotine 21 Mg Patch.Td24) 21 mg TRANSDERMA DAILY [facility] Last Admin: 10/15/24 09:29 Dose: 21 mg Documented By: KATINA Omeprazole (Omeprazole 40 Mg Capsule.Dr) 40 mg PO DAILY@0630 [facility] Last Admin: 10/15/24 06:03 Dose: 40 mg Documented By: ZANA Ondansetron HCl (Ondansetron Hcl 4 Mg/2 Ml Vial) 4 mg IVPUSH Q6H PRN PRN Reason: Nausea and Vomiting Oxycodone HCl (Oxycodone Hcl Immed Release 5 Mg Tablet) 5 mg PO Q4H PRN PRN Reason: Pain, Moderate(Pain Scale 4-6) Last Admin: 10/12/24 20:30 Dose: 5 mg Documented By: MELISSA Pharmacy Consult (Consult Rx Etoh Phenob Po Only) 1 each MISCELLANE ONCE PRN; Protocol PRN Reason: Consult order Phenobarbital 200 mg/ (Phenobarbital 30 mg) 230 mg PO Q3H [facility]O; Protocol Stop: 10/15/24 16:01 Last Admin: 10/15/24 12:25 Dose: Not Given Documented By: KATINA Non-Admin Reason: Physician Held Med Phenobarbital (Phenobarbital 30 Mg Tablet) 60 mg PO BID [facility]; Protocol Stop: 10/17/24 09:01 Phenobarbital (Phenobarbital 30 Mg Tablet) 30 mg PO BID [facility]; Protocol Stop: 10/19/24 09:01 Phenobarbital (Phenobarbital 30 Mg Tablet) 30 mg PO DAILY [facility]; Protocol Stop: 10/21/24 09:01 Polyethylene Glycol (Polyethylene Glycol 3350 17 Gm Powd.Pack) 17 gm PO DAILY [facility] Last Admin: 10/15/24 09:32 Dose: 17 gm Documented By: KATINA Sodium Chloride (0.9 % Sodium Chloride Flush 3 Ml Syringe) [address] [facility] Last Admin: 10/15/24 09:28 Dose: 3 ml Documented By: KATINA Labs 10/12/24 08:44 10/12/24 08:44 Labs: Laboratory Results - last 24 hr 10/14/24 10/14/24 10/15/24 12:54 12:55 05:50 ESR 86 H Hold Purple Top SEE NOTE Triglycerides 132 Cholesterol 145 LDL Cholesterol, Calc 98 HDL Cholesterol 21 L T.pallidum Ab (EIA) Nonreactive HIV 1&2 Ab/P24 Ag 4thGn Nonreactive Microbiology Microbiology Results: Microbiology 10/10/24 09:20 Blood Culture - Final Blood - Venous No growth after 5 days. 10/10/24 09:20 Blood Culture - Final Blood - Venous No growth after 5 days. Assessment and Plan (1) Encephalopathy: Status: Acute (2) S/P laparoscopic cholecystectomy: Status: Acute Plan 69-year-old male with a history of chronic tobacco abuse but no history of alcohol or illicit substances over the last 20 years admitted for urgent cholecystectomy 10/10/2024. Surgery uneventful per notes. Postoperatively patient became confused agitated that has worsened over the last 48-72 hours. Blood cultures has been negative times 48 hours. Urine was bland in the postoperative 1. Metabolic encephalopathy (improving) -MRI results noted. EEG pending -patient clinically improved. We will hold off on phenobarb protocol at this time. -await EEG 2. Status post laparoscopic cholecystectomy -as per surgery Full code Lovenox Patient requires ongoing hospitalization for IV antibiotics and close supervision pending workup for metabolic encephalopathy Quality Stroke Does the patient have a stroke diagnosis?: No VTE Prior VTE?: No VTE Risk Level:: Surgical - moderate VTE Device Contraindication: N/A - Device Ordered VTE Drug Contraindication: Treatment Not Indicated
[2024-10-15] MEDS: Enoxaparin Sodium 40 MG/0.4 ML SYRINGE SUBCUT (15:33)
[2024-10-15] MEDS: guaiFENesin LA 600 MG TAB.ER.12H PO ×2 (15:33→19:56)
[2024-10-15 16:23] VITALS: BP 121/72; PULSE 75; RESP 18; TEMP 36.6; O2SAT 98
[2024-10-15 18:03] LABS: Lyme Abs Screen <0.90 index
[2024-10-15 23:10] VITALS: BP 110/67; PULSE 61; RESP 18; TEMP 36.6; O2SAT 96
[2024-10-16] MEDS: Omeprazole 40 MG CAPSULE.DR PO (05:38)
[2024-10-16 07:20] VITALS: BP 115/61; PULSE 61; RESP 12; TEMP 36.6; O2SAT 96
[2024-10-16] MEDS: polyethylene glycoL 3350 17 GM POWD.PACK PO (08:32)
[2024-10-16] MEDS: Ascorbic Acid 500 MG TABLET 1000 MG PO (08:33)
[2024-10-16] MEDS: Imipramine HCl 50 MG TABLET 25 MG PO (08:33)
[2024-10-16] MEDS: guaiFENesin LA 600 MG TAB.ER.12H PO (08:34)
[2024-10-16] MEDS: lisinopriL 20 MG TABLET PO (08:34)
[2024-10-16] MEDS: Docusate Sodium 100 MG CAPSULE PO (08:34)
[2024-10-16] MEDS: Nicotine 21 MG PATCH.TD24 TRANSDERMA (08:35)
[2024-10-16] MEDS: 0.9 % Sodium Chloride Flush 3 ML SYRINGE IVFLUSH ×2 (08:35→14:20)
[2024-10-16] MEDS: Thiamine HCL 100 MG in 0.9 % Sodium Chloride 100 ML 202 MG IV (08:54)
--- NOTE | 2024-10-16 10:17 | MHC.CM.PN ---
Patient has received a bed offer from [facility]. The bed has been accepted. The facility will start the insurance authorization process. Patients will provide transportation home. Discharge is anticipated today.
--- NOTE | 2024-10-16 11:09 | PM.DS ---
DS: Providers Provider Date of Service: 10/16/24 Date of admission: 10/14/24 10:28 Date of discharge: 10/16/24 Primary care physician: None Physician Consults: 10/14/24 07:41 Consult to Hospitalist Stat Comment: Patient was confused on admission. Has persisted Consulting Provider: [facility] Hospitalists Reason For Exam: Confusion, mental status changes 10/14/24 09:59 Consult to Neurology Routine Consulting Provider: [facility] Reason for consultation: Confusion Has provider been notified: Yes DS: Diagnosis Discharge Diagnosis (1) Encephalopathy: Status: Acute (2) S/P laparoscopic cholecystectomy: Status: Acute DS: Summary Hospital Course Hospital Course: Mal Mccurdy is a 69 year old male who presents with roughly 3 days of progressively worsening upper abdominal/epigastric pain. Because of progression of symptoms, he presents to the emergency department further evaluation. Workup in the emergency department demonstrated findings on exam and on CT scan consistent with acute cholecystitis.Patient had 1 similar episode in the past but not of this severity. He otherwise tolerating a diet. He has regular bowel habits. He has never been jaundiced before. Hospital course Patient was admitted to surgical service and underwent laparoscopic cholecystectomy 10/10/2024. Please see surgical notes for details. His postoperative course was unremarkable until 10/14/24 where patient became acutely confused. Patient required multiple doses of Haldol and Ativan and initially thought to be related to alcohol withdrawal. 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 MRI of the head demonstrated a 3 mm focus of acute infarction within the right frontal lobe. Patient was started on statin and maintained on aspirin and a Neurology consult was placed. In addition to MRI and blood work, EEG was done which demonstrated generalized slowing but no evidence of seizure disorder. Over the last 48 hours prior to discharge, patient's mentation returned essentially to baseline. was present and who attests to this. At this point he is medically acceptable for discharge. He has accepted a bed at [facility] acute rehab in [place] where he lives. His will drive them and he will anterior when the bed becomes available. He and his has been instructed that he is not to drive under any circumstances. Upon discharge from [facility] taken determine ability to drive. At this point in time he is medically acceptable for discharge Time Attestation Discharge Coordination Time (in mins): 35 Quality: Safe Use of Opioids Does Pt have an Active Cancer Diagnosis on the Problem List?: No Quality: Stroke Does the patient have a stroke diagnosis?: Yes Reason for No Anti-thrombotic at DC: N/A - Med Ordered Reason for No Anticoagulant at DC: Not indicated Reason Not Initiating IV-Tpa: Drug treatment not indicated Reason for No Anti-thrombotic by Day Two: Not indicated Reason for No Statin at DC: N/A - Med Ordered Physical Exam Vital Signs: Vital Signs: Last Vital Signs Temp 97.9 F 10/16/24 07:20 Pulse 61 10/16/24 07:20 Resp 12 10/16/24 07:20 BP 115/61 10/16/24 07:20 Pulse Ox 96 10/16/24 07:20 O2 Del Method Room Air 10/16/24 07:20 O2 Flow Rate 3 10/10/24 16:35 FiO2 30 10/10/24 16:35 BMI result Body Mass Index 27.4 Const: Other: Awake agitated and confused Resp: Other: Clear to auscultation bilaterally no rales rhonchi or wheezes Cardio: Other: No S4; positive S1-S2; no S3 murmurs rubs or gallops GI: Other: Soft nontender nondistended normoactive bowel sounds Neuro: Other: Awake alert oriented x3. Cranial nerves 2-12 are grossly intact as tested. 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 Motor is 5/5 all extremities sensation is intact. Gait is somewhat ataxic but markedly improved since admission Extrem: Other: No edema bilaterally DS: Data Data Completed and Pending Completed studies during hospitalization [Text1]: Pending at discharge 10/10/24 15:39 Surgical [PTH] Routine Labs on day of discharge: Laboratory Results - last 24 hr 10/14/24 12:55 Lyme Screen IgG & IgM <0.90 Discharge Plan Discharge Anticipated Discharge Date/Time: 10/16/24 11:04 Patient Disposition: Xfer Inpatient Rehab Fac Discharge Diagnosis: acute cholecystitis Referrals: Physician,None [Primary Care Provider] - 1 Week Jaylen Bhardwaj MD [Physician] - 1 Week Discharge Medications: New docusate sodium [Colace] 100 mg capsule 100 mg PO BID Qty: 30 0RF oxycodone 5 mg tablet 5 mg PO Q4H PRN (Reason: pain (scale score 7-10)) Qty: 24 0RF Rx Instructions: Partial Fill upon patient request. hydrocodone-acetaminophen 5-325 mg tablet 1 tab PO Q4-6H PRN (Reason: pain) Qty: 30 0RF Rx Instructions: Partial Fill upon patient request. atorvastatin 40 mg tablet 40 mg PO BEDTIME Qty: 30 0RF aspirin [Adult Low Dose Aspirin] 81 mg tablet,delayed release (DR/EC) 81 mg PO DAILY Qty: 30 0RF Continued lisinopril 20 mg tablet 20 mg PO DAILY omeprazole 40 mg capsule,delayed release(DR/EC) 40 mg PO DAILY imipramine HCl 25 mg tablet 25 mg PO DAILY ascorbic acid (vitamin C) [Vitamin C] 500 mg Tablet 1,000 mg PO DAILY Discharge Orders: Discharge Order (Routine); Ordered 10/16/24 Ordered By: Tate Haider Diet: Low fat, low cholesterol Activity on Discharge: No heavy lifting Stand Alone Forms: Patient Portal Discharge page Print Language: [place] Activity Restrictions/Additional Instructions: Apply an ice pack for short intervals (20 minutes on, followed by at least 20 minutes off) for the first 2 days. Do not apply heat. Do not use creams, lotions, or topical antibiotics. These can cause infection or allergic reaction. Ok to shower 48 hours after your surgery. Remove dressings in 2 days and replace as needed. You have steri strips (small white cloth strips) covering your incision- these will fall off ~1 week. Follow up in office with Dr. Bhardwaj in 1 week. ([phone]) No heavy lifting (>10lbs) or strenuous activity! Call Your Doctor If: -Your temperature exceeds 101.5? F -You experience excessive pain or swelling -You have an unexpected reaction to medication -You have excessive bleeding -You experience continued vomiting/nausea -Your incision begins to separate -Your incision shows signs of infection such as increased redness, swelling, excessive pain, drainage (light blood or clear fluid is normal) or heat Care Plan Goals: Resume all medicine as taken prior to hospitalization. Lipitor 40 mg daily along with aspirin 81 mg daily has been added to your regimen Health Concerns: Activity restrictions as above Plan of Treatment: You will be accepted at [facility] in [place]. They will call you when bed is available. will drive back to [place]. Urine not to drive till cleared by [facility] Assessment: See discharge summary
[2024-10-16] MEDS: Enoxaparin Sodium 40 MG/0.4 ML SYRINGE SUBCUT (14:20)
[2024-10-16 15:00] VITALS: BP 119/64; PULSE 73; RESP 18; TEMP 36.4; O2SAT 99
== END 2024-10-16 15:12 | DRG 987 ==
LOC: HO.ED 11:49 → HO.SSS 12:13 → HO.SSSA 14:00 → HO.S3 15:54
PROVIDERS: Hospitalist; Surgery; Admitting Provider Surgery; Emergency Provider Emergency Medicine; Visit Provider Hospitalist
PROC: 0FT44ZZ Resection of Gallbladder, Percutaneous Endoscopic Approach (ICD-10-PCS; CPT 47562; principal; 2024-10-10 14:10)
DX: I63.9 Cerebral infarction, unspecified (principal); G93.41 Metabolic encephalopathy; K81.0 Acute cholecystitis; K82.A1 Gangrene of gallbladder in cholecystitis; Z79.899 Other long term (current) drug therapy
CPT/HCPCS: 36415; 70450; 70551; 71046; 74177; 80048; 80051; 80053; 80061; 80076; 81001; 82140; 82248; 83605; 83690; 84484; 85025; 85652; 86617; 86618; 86780; 87040; 87389; 88304; 93005; 94660; 95816; 97116; 97162; 97166; 97535; 99221; 99284; J0131; J0360; J0696; J1630; J1650; J1836; J2003; J2060; J2270; J2704; J3010; J3411; J7120; Q9967

== ENCOUNTER → 2024-10-10 08:27 | Outpatient (BNV) | payer OTHER, SELFPAY | PROVIDERS: Emergency Provider Emergency Medicine; Visit Provider Surgery | DX: K81.9 Cholecystitis, unspecified (principal) | CPT/HCPCS: 47562; 99222 ==

== ENCOUNTER → 2024-10-10 08:48 | Outpatient (BNV) | payer OTHER, SELFPAY | PROVIDERS: Emergency Provider Emergency Medicine; Visit Provider Radiology Diagnostic Radiology | DX: R07.9 Chest pain, unspecified (principal); R41.82 Altered mental status, unspecified | CPT/HCPCS: 70450; 71046; 74177 ==

== ENCOUNTER 2024-10-14 10:28 | Outpatient (BNV) | payer OTHER, SELFPAY | END 2024-10-14 17:30 | PROVIDERS: Admitting Provider Surgery; Emergency Provider Emergency Medicine; Visit Provider Radiology Diagnostic Radiology | DX: I63.321 Cerebral infarction due to thrombosis of right anterior cerebral artery (principal) | CPT/HCPCS: 70551 ==

== ENCOUNTER → 2024-10-14 10:28 | Outpatient (BNV) | payer OTHER, SELFPAY | PROVIDERS: Admitting Provider Surgery; Emergency Provider Emergency Medicine; Visit Provider Hospitalist | DX: G93.41 Metabolic encephalopathy (principal); Z90.49 Acquired absence of other specified parts of digestive tract | CPT/HCPCS: 99222; 99232; 99239; 99499 ==

== ENCOUNTER → 2024-10-14 10:28 | Outpatient (BNV) | payer OTHER, SELFPAY | PROVIDERS: Admitting Provider Surgery; Emergency Provider Emergency Medicine; Visit Provider Psychiatry & Neurology Neurology | DX: G93.40 Encephalopathy, unspecified (principal) | CPT/HCPCS: 99223 ==